=== PATIENT | female | born 1980 | race Hispanic/Latino ===

== ENCOUNTER 2020-05-15 15:06 | Emergency (ER) | payer SELFPAY ==
[~2020-05-15] VITALS: Ht 165.1 cm; Wt 76.7 kg
[2020-05-15] MEDS ORDERED: KETOROLAC TROMETHAMINE 30 MG/ML VIAL IV STA (15:32)
[2020-05-15] MEDS ORDERED: ONDANSETRON HCL INJ 2MG/ML 2ML 2 MG/ML VIAL IV STA (15:32)
[2020-05-15] MEDS ORDERED: KETOROLAC TROMETHAMINE 30 MG/ML VIAL ONE (15:59)
[2020-05-15] MEDS ORDERED: ONDANSETRON HCL INJ 2MG/ML 2ML 2 MG/ML VIAL ONE (15:59)
--- NOTE | 2020-05-15 16:21 | Diagnostic Imaging Report ---
EXAM: CT Abdomen and Pelvis WITHOUT intravenous contrast INDICATION: Right upper quadrant abdominal pain COMPARISON: None. TECHNIQUE: Abdomen and pelvis were scanned utilizing a multidetector helical scanner from the lung base to the pubic symphysis without administration of IV contrast. Coronal and sagittal reformations were obtained. IV CONTRAST: None ORAL CONTRAST: None COMPLICATIONS: None RADIATION DOSE: Total DLP: (DLP x 0.015 x size factor) mGy*cm Dose modulation, iterative reconstruction, and/or weight based adjustment of the mA/kV was utilized to reduce the radiation dose to as low as reasonably achievable. FINDINGS: LOWER THORAX: Normal. HEPATOBILIARY: No focal liver lesion. Status post cholecystectomy. SPLEEN: No splenomegaly. PANCREAS: No focal masses or ductal dilatation. ADRENALS: No adrenal nodules. KIDNEYS/URETERS: Left upper pole renal calculi measure up to 5 mm. Left lower pole renal calculi measure up to 3 mm. No hydronephrosis or hydroureter. No right renal calculi. No solid renal mass lesion. PELVIC ORGANS/BLADDER: 4.9 x 4.1 x 5.8 cm right pelvic fat containing lesion containing several punctate areas of calcification, possibly an ovarian dermoid. PERITONEUM / RETROPERITONEUM: No free air or fluid. LYMPH NODES: No lymphadenopathy. VESSELS: Unremarkable. GI TRACT: No abnormal bowel thickening. No bowel obstruction. Postoperative findings of appendectomy. BONES AND SOFT TISSUES: No acute osseous injury. No suspicious lytic or blastic lesions. IMPRESSION: No focal abnormality in the right upper quadrant. Status post cholecystectomy. 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 Recommend follow-up with pelvic ultrasound in 12 months to assess for stability. Signed by: David Miller MD on 05/15/2020 4:17 PM
--- OUTSIDE RECORDS SUMMARY | 2020-05-15 16:30 | XMS REPORT | Summary of Care ---
Author Author [facility] Organization [facility] Address Unknown Phone Unavailable Care Team Providers Care Lock Master Name Role Phone Fidel Flores PCP Encounter [facility](ANUP) [id number] Date(s): 06/22/19 - 06/24/19 [facility] [address] [place] [address]- Discharge Disposition: Home or Self Care Attending Physician: Stephanie Matson MD Admitting Physician: Stephanie Matson MD Vital Signs 1 2 3 Most recent to oldest [Reference Range]: 165.1 cm (06/24/19 8:04 AM) 165.1 cm (06/23/19 9:00 AM) 165.1 cm (06/22/19 5:11 PM) Height 98.5 DegF (06/24/19 7:40 AM) 98.2 DegF (06/24/19 3:07 AM) 97.9 DegF (06/23/19 11:17 PM) Temperature Oral [96.4-99.1 DegF] 106/66 mmHg (06/24/19 7:40 AM) 91/55 mmHg (06/24/19 3:07 AM) 115/75 mmHg (06/23/19 11:17 PM) Blood Pressure [90-140/60-90 mmHg] 16 BRMIN (06/24/19 7:40 AM) 16 BRMIN (06/24/19 3:07 AM) 16 BRMIN (06/23/19 11:17 PM) Respiratory Rate [14-20 BRMIN] 61 bpm (06/24/19 7:40 AM) 79 bpm (06/24/19 3:07 AM) 64 bpm (06/23/19 11:17 PM) Peripheral Pulse Rate [60-100 bpm] 71.364 kg (06/24/19 8:04 AM) 71.364 kg (06/23/19 9:00 AM) 71.364 kg (06/22/19 5:11 PM) Weight 26.18 m2 (06/24/19 8:04 AM) 26.18 m2 (06/23/19 9:00 AM) 26.18 m2 (06/22/19 5:11 PM) Body Mass Index Problem List Condition Effective Dates Status Health Status Informan t Tachycardia(Confirme Resolved d) Allergies, Adverse Reactions, Alerts No Known Medication Allergies Medications acetaminophen 650 mg, 2 tab, Route: PO, Drug form: TAB, Q4H, Dosing Weight 71.364, kg, PRN Kelton n 1-3/Temp > 100.4 F, Start date: 06/22/19 18:15:00 CDT, Duration: 30 day, Stop date: 07/22/19 18:14:00 CDT, 0 Notes: Do not exceed 4 gm/day. (Same as: Tylenol) Start Date: 06/22/19 Stop Date: 06/24/19 Status: Discontinued ANES acetaminophen 1,000 mg, Route: PO, Drug form: TAB, ONCE, Dosing Weight 71.364, kg, PRN Pain Sc ore 1-3, Start date: 06/23/19 10:54:00 CDT Start Date: 06/23/19 Stop Date: 06/23/19 Status: Discontinued ANES fentaNYL 25 microgram, Route: IVP, Q5Min, Dosing Weight 71.364, kg, PRN Pain Score 4-6, P riority: Routine, Start date: 06/23/19 10:46:00 CDT, Duration: 4 doses or times, Stop date: Limited # of times Start Date: 06/23/19 Stop Date: 06/23/19 Status: Discontinued ANES flumazenil 0.2 mg, Route: IVP, PRN, Dosing Weight 71.364, kg, PRN Benzodiazepine Reversal, Initial dose, Start date: 06/23/19 10:46:00 CDT, Duration: 30 day, Stop date: 10:45:00 CDT Start Date: 06/23/19 Stop Date: 06/23/19 Status: Discontinued ANES flumazenil 0.2 mg, Route: IVP, PRN, Dosing Weight 71.364, kg, PRN Benzodiazepine Reversal, Initial dose, Start date: 06/23/19 10:54:00 CDT, Duration: 30 day, Stop date: 10:53:00 CDT Start Date: 06/23/19 Stop Date: 06/23/19 Status: Discontinued ANES HYDROmorphone 0.5 mg, Route: IVP, Q5Min, Dosing Weight 71.364, kg, PRN Pain Score 7-10, Start date: 06/23/19 10:54:00 CDT, Duration: 4 doses or times, Stop date: Limited # of times Start Date: 06/23/19 Stop Date: 06/23/19 Status: Discontinued ANES morphine Sulfate 2 mg, Route: IVP, Q5Min, Dosing Weight 71.364, kg, PRN Pain Score 4-6, Start luke e: 06/23/19 10:54:00 CDT, Duration: 5 doses or times, Stop date: Limited # of ti mes Start Date: 06/23/19 Stop Date: 06/23/19 Status: Discontinued ANES naloxone 0.4 mg, Route: IVP, Q2MIN, Dosing Weight 71.364, kg, PRN Narcotic Reversal, Star t date: 06/23/19 10:46:00 CDT, Duration: 8 doses or times, Stop date: Limited # of times Start Date: 06/23/19 Stop Date: 06/23/19 Status: Discontinued ANES naloxone 0.4 mg, Route: IVP, Q2MIN, Dosing Weight 71.364, kg, PRN Narcotic Reversal, Star t date: 06/23/19 10:54:00 CDT, Duration: 8 doses or times, Stop date: Limited # of times Start Date: 06/23/19 Stop Date: 06/23/19 Status: Discontinued ANES ondansetron 4 mg, Route: IVP, ONCE, Dosing Weight 71.364, kg, PRN Nausea & Vomiting, Start date: 06/23/19 10:46:00 CDT Start Date: 06/23/19 Stop Date: 06/23/19 Status: Discontinued ANES ondansetron 4 mg, Route: IVP, ONCE, Dosing Weight 71.364, kg, PRN Nausea & Vomiting, Start date: 06/23/19 10:54:00 CDT Start Date: 06/23/19 Stop Date: 06/23/19 Status: Discontinued ANES oxyCODONE 5 mg immediate release tablet 10 mg, Route: PO, Drug form: TAB, Q4H, Dosing Weight 71.364, kg, PRN Pain Score 7-10, Start date: 06/23/19 10:46:00 CDT, Duration: 30 day, Stop date: 07/23/19 1 0:45:00 CDT Start Date: 06/23/19 Stop Date: 06/23/19 Status: Discontinued ANES oxyCODONE 5 mg immediate release tablet 5 mg, Route: PO, Drug form: TAB, Q4H, Dosing Weight 71.364, kg, PRN Pain Score 4 -6, Start date: 06/23/19 10:54:00 CDT, Duration: 30 day, Stop date: 07/23/19 10: 53:00 CDT Start Date: 06/23/19 Stop Date: 06/23/19 Status: Discontinued ANES oxyCODONE 5 mg immediate release tablet 10 mg, Route: PO, Drug form: TAB, Q4H, Dosing Weight 71.364, kg, PRN Pain Score 7-10, Start date: 06/23/19 10:54:00 CDT, Duration: 30 day, Stop date: 07/23/19 1 0:53:00 CDT Start Date: 06/23/19 Stop Date: 06/23/19 Status: Discontinued carvedilol 3.125 mg, 1 tab, Route: PO, Drug form: TAB, Q12H, Dosing Weight 71.364, kg, Star t date: 06/23/19 21:00:00 CDT, Duration: 30 day, Stop date: 07/23/19 9:00:00 CDT , 0 Notes: Give with food. (Same As: Coreg) Start Date: 06/23/19 Stop Date: 06/24/19 Status: Discontinued carvedilol 3.125 mg oral tablet 3.125 mg = 1 tab, PO, BID, # 180 tab, 0 Refill(s) Start Date: 06/22/19 Status: Ordered ciprofloxacin 400 mg, 200 mL, Route: IVPB, Drug form: INJ, [id number], Dosing Weight 71.364, kg, Start date: 06/22/19 19:00:00 CDT, Duration: 10 day, Stop date: 07/02/19 7:00:00 CDT, ABX Indication: Intra-abdominal Infection, 0 Notes: Do not refrigerate Start Date: 06/22/19 Stop Date: 06/24/19 Status: Discontinued Colace 100 mg oral capsule 100 mg = 1 cap, PO, BID, PRN as needed for constipation, # 20 cap, 0 Refill(s), Pharmacy: [id number] Start Date: 06/23/19 Status: Ordered dexamethasone (ANES) Route: IV, Drug form: INJ, ONCE, Stop date: 06/23/19 10:03:00 CDT Start Date: 06/23/19 Stop Date: 06/23/19 Status: Completed Dextrose 50% Syringe 12.5 gm, 25 mL, Route: IVP, Drug Form: INJ, Dosing Weight 71.364, kg, PRN, PRN B lood Glucose Results, Start date: 06/22/19 18:15:00 CDT, Duration: 30 day, Stop date: 07/22/19 18:14:00 CDT, 0 Start Date: 06/22/19 Stop Date: 06/24/19 Status: Discontinued Dextrose 50% Syringe 25 gm, 50 mL, Route: IVP, Drug Form: INJ, Dosing Weight 71.364, kg, PRN, PRN Blo od Glucose Results, Start date: 06/22/19 18:15:00 CDT, Duration: 30 day, Stop da te: 07/22/19 18:14:00 CDT, 0 Start Date: 06/22/19 Stop Date: 06/24/19 Status: Discontinued fentaNYL (ANES) Route: IV, Drug form: INJ, ONCE, Stop date: 06/23/19 9:32:00 CDT Start Date: 06/23/19 Stop Date: 06/23/19 Status: Completed Flagyl 500 mg, 100 mL, Route: IVPB, Drug form: INJ, [id number], Dosing Weight 71.364, kg, S tart date: 06/22/19 19:00:00 CDT, Duration: 10 day, Stop date: 07/02/19 11:00:00 CDT, ABX Indication: Intra-abdominal Infection, 0 Notes: (Same as: Flagyl) Avoid alcohol. Start Date: 06/22/19 Stop Date: 06/24/19 Status: Discontinued glucagon 1 mg, Route: IM, Drug form: PDR/INJ, PRN, Dosing Weight 71.364, kg, PRN Blood Gl ucose Results, Start date: 06/22/19 18:15:00 CDT, Duration: 30 day, Stop date: 1 18:14:00 CDT, 0 Start Date: 06/22/19 Stop Date: 06/24/19 Status: Discontinued glycopyrrolate (ANES) Route: IV, Drug form: INJ, ONCE, Stop date: 06/23/19 10:03:00 CDT Start Date: 06/23/19 Stop Date: 06/23/19 Status: Completed Lactated Ringers Injection IV (ANES) 1000 mL Route: IV, Total Volume: 1,000, Start date: 06/23/19 8:47:00 CDT, Stop date: 9:47:00 CDT Start Date: 06/23/19 Stop Date: 06/23/19 Status: Completed Lactated Ringers IV 1,000 mL 1,000 mL, Rate: 125 ml/hr, Infuse over: 8 hr, Route: IV, Dosing Weight 71.364 kg , Total Volume: 1,000, Start date: 06/22/19 18:23:00 CDT, Duration: 30 day, Stop date: 07/22/19 18:22:00 CDT, 1.83, m2, 0 Start Date: 06/22/19 Stop Date: 06/24/19 Status: Discontinued lidocaine (ANES) Route: IV, Drug form: INJ, ONCE, Stop date: 06/23/19 9:32:00 CDT Start Date: 06/23/19 Stop Date: 06/23/19 Status: Completed melatonin 3 mg, 1 tab, Route: PO, Drug form: TAB, Bedtime, Dosing Weight 71.364, kg, PRN I nsomnia, Start date: 06/22/19 18:15:00 CDT, Duration: 30 day, Stop date: 9 18:14:00 CDT, 0 Notes: (Same as: Melatonin) Start Date: 06/22/19 Stop Date: 06/24/19 Status: Discontinued midazolam (ANES) Route: IV, Drug form: SOLN, ONCE, Stop date: 06/23/19 9:32:00 CDT Start Date: 06/23/19 Stop Date: 06/23/19 Status: Completed morphine Sulfate 4 mg, 1 mL, Route: IVP, Drug form: SOLN, Q4H, Dosing Weight 71.364, kg, PRN Pain Score 7-10, Start date: 06/22/19 21:18:00 CDT, Duration: 30 day, Stop date: 21:17:00 CDT, 0 Notes: (Same as:MORPhine Sulfate) Start Date: 06/22/19 Stop Date: 06/24/19 Status: Discontinued neostigmine (ANES) Route: IV, Drug form: INJ, ONCE, Stop date: 06/23/19 10:03:00 CDT Start Date: 06/23/19 Stop Date: 06/23/19 Status: Completed ondansetron 4 mg, 2 mL, Route: IVP, Drug form: INJ, Q8H, Dosing Weight 71.364, kg, PRN Nause a & Vomiting, Start date: 06/22/19 18:15:00 CDT, Duration: 30 day, Stop date: 07/22/19 18:14:00 CDT, 0 Notes: (Same as: Zofran) MEDICATION WASTE Product Size: 4 mgProduct Was alessandra: ___ mg Start Date: 06/22/19 Stop Date: 06/24/19 Status: Discontinued ondansetron (ANES) Route: IV, Drug form: INJ, ONCE, Stop date: 06/23/19 10:03:00 CDT Start Date: 06/23/19 Stop Date: 06/23/19 Status: Completed propofol (ANES) Route: IV, Drug form: INJ, ONCE, Stop date: 06/23/19 9:32:00 CDT Start Date: 06/23/19 Stop Date: 06/23/19 Status: Completed rocuronium (ANES) Route: IV, Drug form: INJ, ONCE, Stop date: 06/23/19 9:32:00 CDT Start Date: 06/23/19 Stop Date: 06/23/19 Status: Completed sodium phosphate + Dextrose 5% in Water IV 250 mL 30 mmol, 10 mL, Route: IVPB, PRN, Dosing Weight 71.364, kg, PRN Abnormal Lab Res ult, Start date: 06/22/19 21:02:00 CDT, Duration: 30 day, Stop date: 07/22/19 21 :01:00 CDT, Phosphate level 1.5 - 1.9 mg/dL, 0 Notes: Infuse over 4 hour. Do not infuse phosphorous concurrently in the same li ne as TPN or IVF that contains calcium. For double lumen central lines, phosphor ous may be infused in a separate lumen from TPN. Start Date: 06/22/19 Stop Date: 06/24/19 Status: Discontinued tramadol 50 mg oral tablet 50 mg = 1 tab, PO, Q4H, PRN Pain Score 7-10, # 28 tab, 0 Refill(s) Start Date: 06/23/19 Stop Date: 07/23/19 Status: Ordered Results 1 2 3 Most recent to oldest [Reference Range]: 6.4 K/CMM (06/24/19 3:12 AM) 6.6 K/CMM (06/23/19 6:01 AM) 9.2 K/CMM *HI* (06/22/19 6:43 PM) Neutrophils # [1.5-8.1 K/CMM] 2.0 K/CMM (06/24/19 3:12 AM) 0.9 K/CMM *LOW* (06/23/19 6:01 AM) 1.0 K/CMM (06/22/19 6:43 PM) Lymphocytes # [1.0-5.5 K/CMM] 0.6 K/CMM (06/24/19 3:12 AM) 0.3 K/CMM (06/23/19 6:01 AM) 0.2 K/CMM (06/22/19 6:43 PM) Monocytes # [0.0-0.8 K/CMM] 0.1 K/CMM (06/22/19 6:43 PM) Eosinophils # [0.0-0.5 K/CMM] 122 mL/min/1.73m2 1 *NA* (06/24/19 3:12 AM) 129 mL/min/1.73m2 2 *NA* (06/23/19 6:01 AM) 120 mL/min/1.73m2 3 *NA* (06/22/19 6:43 PM) eGFR 10.0 mEq/L (06/24/19 3:12 AM) 9.9 mEq/L *LOW* (06/23/19 6:01 AM) 8.9 mEq/L *LOW* (06/22/19 6:43 PM) AGAP [10.0-20.0 mEq/L] 0.1 % (06/24/19 3:12 AM) 0.1 % (06/22/19 6:43 PM) Basophils [0.0-1.0 %] 9 mg/dL (06/24/19 3:12 AM) 7 mg/dL (06/23/19 6:01 AM) 8 mg/dL (06/22/19 6:43 PM) BUN [7-22 mg/dL] 8.6 mg/dL (06/24/19 3:12 AM) 8.7 mg/dL (06/23/19 6:01 AM) 9.2 mg/dL (06/22/19 6:43 PM) Calcium Lvl [8.5-10.5 mg/dL] 109 mEq/L (06/24/19 3:12 AM) 111 mEq/L *HI* (06/23/19 6:01 AM) 111 mEq/L *HI* (06/22/19 6:43 PM) Chloride Lvl [95-109 mEq/L] 26 mEq/L (06/24/19 3:12 AM) 23 mEq/L *LOW* (06/23/19 6:01 AM) 24 mEq/L (06/22/19 6:43 PM) CO2 [24-32 mEq/L] 0.52 mg/dL (06/24/19 3:12 AM) 0.44 mg/dL *LOW* (06/23/19 6:01 AM) 0.55 mg/dL (06/22/19 6:43 PM) Creatinine Lvl [0.50-1.40 mg/dL] 0.2 % (06/24/19 3:12 AM) 0.6 % (06/22/19 6:43 PM) Eosinophils [0.0-4.0 %] 92 mg/dL (06/24/19 3:12 AM) 115 mg/dL *HI* (06/23/19 6:01 AM) 106 mg/dL *HI* (06/22/19 6:43 PM) Glucose Lvl [70-99 mg/dL] 25.4 % *LOW* (06/24/19 3:12 AM) 27.4 % *LOW* (06/23/19 6:01 AM) 30.9 % *LOW* (06/22/19 6:43 PM) Hct [36.0-48.0 %] 8.0 g/dL *LOW* (06/24/19 3:12 AM) 8.6 g/dL *LOW* (06/23/19 6:01 AM) 10.0 g/dL *LOW* (06/22/19 6:43 PM) Hgb [12.0-16.0 g/dL] 4.0 mEq/L (06/24/19 3:12 AM) 3.9 mEq/L (06/23/19 6:01 AM) 3.9 mEq/L (06/22/19 6:43 PM) Potassium Lvl [3.5-5.1 mEq/L] 22.4 % (06/24/19 3:12 AM) 12.0 % *LOW* (06/23/19 6:01 AM) 9.6 % *LOW* (06/22/19 6:43 PM) Lymphocytes [20.0-40.0 %] 22.9 pg *LOW* (06/24/19 3:12 AM) 22.8 pg *LOW* (06/23/19 6:01 AM) 23.1 pg *LOW* (06/22/19 6:43 PM) MCH [27.0-31.0 pg] 31.7 g/dL *LOW* (06/24/19 3:12 AM) 31.5 g/dL *LOW* (06/23/19 6:01 AM) 32.5 g/dL (06/22/19 6:43 PM) MCHC [32.0-36.0 g/dL] 72.2 fL *LOW* (06/24/19 3:12 AM) 72.2 fL *LOW* (06/23/19 6:01 AM) 71.0 fL *LOW* (06/22/19 6:43 PM) MCV [80.0-98.0 fL] 1.9 mg/dL (06/24/19 3:12 AM) 1.9 mg/dL (06/23/19 6:01 AM) 2.2 mg/dL (06/22/19 6:43 PM) Magnesium Lvl [1.8-2.4 mg/dL] 1+ *ABN* (06/24/19 3:12 AM) 1+ *ABN* (06/23/19 6:01 AM) 1+ *ABN* (06/22/19 6:43 PM) Microcyte [None Seen] 6.9 % (06/24/19 3:12 AM) 4.0 % (06/23/19 6:01 AM) 1.9 % *LOW* (06/22/19 6:43 PM) Monocytes [2.0-12.0 %] 7.0 fL *LOW* (06/24/19 3:12 AM) 6.7 fL *LOW* (06/23/19 6:01 AM) 6.9 fL *LOW* (06/22/19 6:43 PM) MPV [7.4-10.4 fL] 141 mEq/L (06/24/19 3:12 AM) 140 mEq/L (06/23/19 6:01 AM) 140 mEq/L (06/22/19 6:43 PM) Sodium Lvl [135-145 mEq/L] 2.5 mg/dL (06/24/19 3:12 AM) 3.4 mg/dL (06/23/19 6:01 AM) 1.7 mg/dL *LOW* (06/22/19 6:43 PM) Phosphorus [2.5-4.5 mg/dL] 284 K/CMM (06/24/19 3:12 AM) 325 K/CMM (06/23/19 6:01 AM) 359 K/CMM (06/22/19 6:43 PM) Platelet [133-450 K/CMM] 70.4 % (06/24/19 3:12 AM) 84.0 % *HI* (06/23/19 6:01 AM) 87.8 % *HI* (06/22/19 6:43 PM) Segs [45.0-75.0 %] 3.51 M/CMM *LOW* (06/24/19 3:12 AM) 3.79 M/CMM *LOW* (06/23/19 6:01 AM) 4.35 M/CMM (06/22/19 6:43 PM) RBC [4.20-5.40 M/CMM] 18.2 % *HI* (06/24/19 3:12 AM) 18.1 % *HI* (06/23/19 6:01 AM) 17.8 % *HI* (06/22/19 6:43 PM) RDW [11.5-14.5 %] <0.02 ng/mL (06/23/19 6:01 AM) <0.02 ng/mL (06/23/19 12:06 AM) <0.02 ng/mL (06/22/19 6:43 PM) Troponin-I [0.00-0.40 ng/mL] Negative (06/23/19 8:01 AM) U Preg [Negative] 9.1 K/CMM (06/24/19 3:12 AM) 7.9 K/CMM (06/23/19 6:01 AM) 10.5 K/CMM *HI* (06/22/19 6:43 PM) WBC [3.7-10.4 K/CMM] 1Result Comment: The eGFR is calculated using the CKD-EPI formula. In most young, healthy individuals the eGFR will be >90 mL/min/1.73m2. The eGFR declines with age. An eGFR of 60-89 may be normal in some populations, particularly the elderly, for whom the CKD-EPI formula has not been extensively validated. Use of the eGFR is not recommended in the following populations: Individuals with unstable creatinine concentrations, including patients and those with serious co-morbid conditions. Patients with extremes in muscle mass or diet. The data above are obtained from the National Kidney Disease Education Program ( NKDEP) which additionally recommends that when the eGFR is used in patients with extremes of body mass index for purposes of drug dosing, the eGFR should be mul tiplied by the estimated BMI. 2Result Comment: The eGFR is calculated using the CKD-EPI formula. In most young, healthy individuals the eGFR will be >90 mL/min/1.73m2. The eGFR declines with age. An eGFR of 60-89 may be normal in some populations, particularly the elderly, for whom the CKD-EPI formula has not been extensively validated. Use of the eGFR is not recommended in the following populations: Individuals with unstable creatinine concentrations, including patients and those with serious co-morbid conditions. Patients with extremes in muscle mass or diet. The data above are obtained from the National Kidney Disease Education Program ( NKDEP) which additionally recommends that when the eGFR is used in patients with extremes of body mass index for purposes of drug dosing, the eGFR should be mul tiplied by the estimated BMI. 3Result Comment: The eGFR is calculated using the CKD-EPI formula. In most young, healthy individuals the eGFR will be >90 mL/min/1.73m2. The eGFR declines with age. An eGFR of 60-89 may be normal in some populations, particularly the elderly, for whom the CKD-EPI formula has not been extensively validated. Use of the eGFR is not recommended in the following populations: Individuals with unstable creatinine concentrations, including patients and those with serious co-morbid conditions. Patients with extremes in muscle mass or diet. The data above are obtained from the National Kidney Disease Education Program ( NKDEP) which additionally recommends that when the eGFR is used in patients with extremes of body mass index for purposes of drug dosing, the eGFR should be mul tiplied by the estimated BMI. Immunizations No data available for this section Procedures No data available for this section Social History Social History Type Response Alcohol Never, Previous treatment: None. Alcohol use interferes with work or home: No. Drinks more than intended: No. Ot hers hurt by drinking: No. Ready to change: No. Household alcohol concerns : No. Smoking Status Never smoker; Ready to [place]: No; Concerns about tobacco use in household: No; Exposure to Tobacco Smoke None; Cig arette Smoking Last 365 Days No; Reg Smoking Cessation Counseling No entered on: 06/22/19 Assessment and Plan Extracted from: Title: Progress Note Complex * Author: Stephanie Matson MD Date: 06/23/19 Impression and Plan 38 YO F with no prior hx admitted with a bd pain and found to have acute appendicitis. Acute appendicitis - s/p lap appendectomy 06/23/19 -cnt supportive mgmt -dispo plan per surgery after clearance Leukocytosis - resolved and sec to appendicitis - -monitor Anemia - likely dilutional and possible Fe def anemia considering microcytic anemia '- needs outpt fu with PCP Dispo - home pending surgery clearance. Extracted from: Title: General Surgery Author: Long Ivory MD Date: 06/22/19 Impression and Plan 1) mild acute appendicitis 2) history of tachycardia 3) gastritis --Patient has been admitted to the [facility] service. --Regarding the acute appendicitis, she will be started on IV antibiotics, pain control, --Plan on appendectomy early tomorrow. We will give a clear liquid tonight and n.p.o. after midnight. --I did discuss operative versus nonoper ative management options with the patient. Risk, benefits and possible complications of appendectomy were also discussed. She wants to proceed with surgical intervention. --Regarding the tachycardia, I will defe r to the primary team. She is being started on her home medication. --Recommended to patient and her that patient is to follow with her primary fiber technologist for possibly repeat EGD since she continues with persistent epigastric pain post cholecystectomy about a year ago. Thank you for this consult. We will continue to follow the patient with you. Extracted from: Title: History and Physical Author: Eugenia Chavez MD Date: 06/22/19 Appendicitis, acute(K35.80) Ordered: Admit/Condition, 06/22/19 18:16:00 CDT, Status: Out Patient with Observation Services, Acute, Expected LOS: 2 Midnights, Eugenia Chavez MD, Admit MD Review/Approve Yes, Isolation: No Isolation/Standard Precautions, Appendicitis, acute
--- OUTSIDE RECORDS SUMMARY | 2020-05-15 16:30 | XMS REPORT | CCD ---
Author Author Auto Generated, [facility] Address Unknown Phone Unavailable Care Team Providers Care Fitness Plan Coordinator Name Role Phone Sanjay Perez CP Allergies, Adverse Reactions, Alerts Substance Reaction Status NKDA Active Vital Signs Most recent to oldest [Reference Range]: 1 Height 165.1 cm (03/09/2013 20:00:00) Weight 83.636 kg (03/09/2013 20:00:00) Results URINALYSIS Most recent to oldest [Reference Range]: 1 UA Turbidity [Clear] Clear (03/09/2013 20:02:00) UA Color Ltyellow *NA* (03/09/2013 20:02:00) UA pH [5.0-8.0] 5.0 (03/09/2013 20:02:00) UA Spec Grav [<=1.030] 1.019 (03/09/2013 20:02:00) UA Glucose [Negative mg/dL] Negative mg/dL *NA* (03/09/2013 20:02:00) UA Blood [Negative] Negative (03/09/2013 20:02:00) UA Ketones [Negative mg/dL] Negative mg/dL *NA* (03/09/2013 20:02:00) UA Protein [Negative mg/dL] Negative mg/dL (03/09/2013 20:02:00) UA Urobilinogen [0.1-1.0 mg/dL] <=1.0 mg/dL *NA* (03/09/2013 20:02:00) UA Bili [Negative] Negative *NA* (03/09/2013 20:02:00) UA Leuk Est [Negative] Negative (03/09/2013 20:02:00) UA Nitrite [Negative] Negative (03/09/2013 20:02:00) UA WBC [0-5 /HPF] 1 /HPF (03/09/2013 20:02:00) UA Sq Epi [Few /LPF] Occasional /LPF *NA* (03/09/2013:02:00) CHEMISTRY Most recent to oldest [Reference Range]: 1 Sodium Lvl [135-145 mEq/L] 142 mEq/L (03/09/2013 20:24:00) Potassium Lvl [3.5-5.1 mEq/L] 4.2 mEq/L (03/09/2013:24:00) Chloride Lvl [95-109 mEq/L] 106 mEq/L (03/09/2013:24:00) CO2 [24-32 mEq/L] 28 mEq/L (03/09/2013:24:00) AGAP [10.0-20.0 mEq/L] 12.2 mEq/L (03/09/2013:24:00) Creatinine Lvl [0.5-1.4 mg/dL] 0.8 mg/dL (03/09/2013:24:00) eGFR 98 mL/min/1.73m2 1 *NA* (03/09/2013:24:00) BUN [7-22 mg/dL] 11 mg/dL (03/09/2013:24:00) B/C Ratio [6-25] 14 (03/09/2013:24:00) Glucose Lvl [70-99 mg/dL] 80 mg/dL 2 (03/09/2013 20:24:00) Total Protein [6.4-8.4 g/dL] 8.1 g/dL (03/09/2013:24:00) Albumin Lvl [3.5-5.0 g/dL] 4.0 g/dL (03/09/2013:24:00) Globulin [2.0-4.0 g/dL] 4.1 g/dL *HI* (03/09/2013:24:00) A/G Ratio [0.7-1.6] 1.0 (03/09/2013:24:00) Calcium Lvl [8.5-10.5 mg/dL] 9.0 mg/dL (03/09/2013:24:00) ALT [0-65 unit/L] 33 unit/L (03/09/2013::00) AST [0-37 unit/L] 17 unit/L (03/09/2013:) Alk Phos [39-136 unit/L] 83 unit/L (03/09/2013:00) Bili Total [0.2-1.3 mg/dL] 0.3 mg/dL (03/09/2013::00) Amylase Lvl [25-115 unit/L] 41 unit/L (03/09/2013:00) Lipase Lvl [73-393 unit/L] 130 unit/L (03/09/2013::00) U Preg [Negative] Negative (03/09/2013:00) 1Result Comment: The eGFR is calculated using [...] be mul tiplied by the estimated BMI. 2Interpretive Data: Adult reference range values reflect the clinical guidelines of the [place] [employer]. HEMATOLOGY Most recent to oldest [Reference Range]: 1 WBC [3.7-10.4 K/CMM] 9.2 K/CMM (03/09/2013::) RBC [4.20-5.40 M/CMM] 4.65 M/CMM (03/09/2013:) Hgb [12.0-16.0 g/dL] 13.1 g/dL (03/09/2013:00) Hct [36.0-48.0 %] 39.5 % (03/09/2013 20:24:00) MCV [81.0-99.0 fL] 85.1 fL (03/09/2013:24:00) MCH [27.0-31.0 pg] 28.1 pg (03/09/2013:24:00) MCHC [32.0-36.0 g/dL] 33.1 g/dL (03/09/2013:24:00) RDW [11.5-14.5 %] 14.6 % *HI* (03/09/2013:24:00) Platelet [133-450 K/CMM] 400 K/CMM (03/09/2013:24:00) MPV [7.4-10.4 fL] 7.2 fL *LOW* (03/09/2013:24:) Segs [45.0-75.0 %] 49.3 % (03/09/2013:24:00) Lymphocytes [20.0-40.0 %] 39.2 % (03/09/2013:24:00) Monocytes [2.0-12.0 %] 5.9 % (03/09/2013:24:00) Eosinophils [0.0-4.0 %] 5.3 % *HI* (03/09/2013:24:) Basophils [0.0-1.0 %] 0.3 % (03/09/2013:24:00) Segs-Bands # [1.5-8.1 K/CMM] 4.5 K/CMM (03/09/2013:24:00) Lymphocytes # [1.0-5.5 K/CMM] 3.6 K/CMM (03/09/2013:24:00) Monocytes # [0.0-0.8 K/CMM] 0.5 K/CMM (03/09/2013 20:24:00) Eosinophils # [0.0-0.5 K/CMM] 0.5 K/CMM (03/09/2013:24:00) Basophils # [0.0-0.2 K/CMM] 0.0 K/CMM (03/09/2013 20:24:00)
--- OUTSIDE RECORDS SUMMARY | 2020-05-15 16:30 | XMS REPORT | Clinical Summary ---
Author Author [facility] Address Unknown Phone Unavailable Care Team Providers Care Blood Splatter Analyst Name Role Phone PCP Unavailable Allergies No Known Allergies Medications End Date Status Medication Sig Dispensed Refills Start Date Active carvedilol (COREG) 3.125 Take 3.125 mg 0 MG tablet by mouth 2 (two) times daily with breakfast and dinner. Active dexlansoprazole Take 30 mg by 0 (KAPIDEX,DEXILANT) 30 mg mouth daily. delayed release capsule Active traMADol (ULTRAM) 50 mg Take 1 tablet 10 tablet 0 tablet (50 mg total) 8 by mouth every 6 (six) hours as needed. Max Daily Amount: 200 mg Active Problems Problem Noted Date Calculus of gallbladder with biliary obstruction but without cholecystitis 09/04/2018 Acute hepatitis 09/04/2018 Family History Medical History Relation Name Comments Diabetes Father Heart disease Father Relation Name Status Comments Father Social History Date Tobacco Use Types Packs/Day Years Used Never Smoker Smokeless Tobacco: Never Used Alcohol Use Drinks/Week oz/Week Comments Yes rare beer Alcohol Habits Answer Date Recorded How often do you have a drink containing alcohol? Never 09/04/2018 How many drinks containing alcohol do you have on No t asked a typical day when you are drinking? How often do you have six or more drinks on one Not asked occasion? Sex Assigned at Date Recorded Not on file Industry Job Start Date Occupation Not on file Not on file Not on file Travel End Travel History Travel Start No recent travel history available. Last Filed Vital Signs Not on file Plan of Treatment Not on file Results Not on fileafter 05/15/2019 Insurance Payer Benefit Subscriber ID Type Phone Address Plan / Group [employer] [facility] [employer] [place] [employer] xxxxxxxxx HMO/PO S CARE POS SELECT CHOICE Advance Directives For more information, please contact: [address] [place] [address] Date Inactivated Comments Code Status Date Activated Full Code 09/04/2018 2:54 PM This code status was determined by: Patient
--- OUTSIDE RECORDS SUMMARY | 2020-05-15 16:30 | XMS REPORT | Summary of Care ---
Author Author [facility] Organization [facility] Address Unknown Phone Unavailable Encounter [facility](FIN) [id number] Date(s): 11/08/17 - 11/09/17 [facility] [address] [place] [address]- Encounter Diagnosis Heart palpitations (Discharge Diagnosis) - 11/09/17 Palpitations (Final) - 11/15/17 Essential (primary) hypertension (Final) - Type 2 diabetes mellitus without complications (Final) - Unspecified asthma, uncomplicated (Final) - Discharge Disposition: Home or Self Care Attending Physician: Femi De Leon MD Vital Signs 1 2 3 Most recent to oldest [Reference Range]: 165.1 cm (11/08/17 7:13 PM) Height 97.8 DegF (11/09/17 1:18 AM) 97.6 DegF (11/08/17 11:59 PM) 98.4 DegF (11/08/17 7:13 PM) Temperature Oral [96.4-99.1 DegF] 127/79 mmHg (11/09/17 1:10 AM) 139/86 mmHg (11/08/17 11:59 PM) Blood Pressure [90-140/60-90 mmHg] 129 mmHg (11/09/17 1:18 AM) Systolic Blood Pressure [90-140 mmHg] 77 mmHg (11/09/17 1:18 AM) Diastolic Blood Pressure [60-90 mmHg] 17 BRMIN (11/09/17 1:18 AM) 16 BRMIN (11/09/17 1:10 AM) 17 BRMIN (11/08/17 11:59 PM) Respiratory Rate [14-20 BRMIN] 141 bpm *HI* (11/08/17 7:13 PM) Peripheral Pulse Rate [60-100 bpm] 81.818 kg (11/08/17 7:13 PM) Weight 30.02 m2 (11/08/17 7:13 PM) Body Mass Index Problem List Condition Effective Dates Status Health Status Informan t Tachycardia(Confirme Resolved d) Allergies, Adverse Reactions, Alerts Substance Reaction Severity Status NKDA NKDA Active Medications fentaNYL 50 microgram, Route: IVP, ONCE, Dosing Weight 81.818, kg, Priority: STAT, Start date: 11/08/17 22:01:00 CAR WASH SUPERVISOR, Stop date: 11/08/17 22:01:00 CAR WASH SUPERVISOR Start Date: 11/08/17 Stop Date: 11/08/17 Status: Discontinued fentaNYL 50 microgram, Route: IVP, ONCE, Dosing Weight 81.818, kg, Priority: STAT, Start date: 11/08/17 22:01:00 CAR WASH SUPERVISOR, Stop date: 11/08/17 22:01:00 CAR WASH SUPERVISOR Start Date: 11/08/17 Stop Date: 11/08/17 Status: Discontinued [place] 10/325 oral tablet 1 tab, Route: PO, Drug Form: TAB, Dosing Weight 81.818, kg, ONCE, STAT, Start da te: 11/08/17 22:01:00 CAR WASH SUPERVISOR, Stop date: 11/08/17 22:01:00 CAR WASH SUPERVISOR Start Date: 11/08/17 Stop Date: 11/08/17 Status: Discontinued Saline Flush 0.9% 10 mL, Route: IVP, Drug Form: INJ, Dosing Weight 83.182, kg, PRN, PRN Line Flush , Start date: 11/08/17 19:14:00 CAR WASH SUPERVISOR, Duration: 30 day, Stop date: 12/08/17 19:13 :00 CAR WASH SUPERVISOR Notes: (Same as: BD Posiflush) Start Date: 11/08/17 Stop Date: 11/09/17 Status: Discontinued Sodium Chloride 0.9% (Bolus) IV 1,000 mL, Infuse Over: 1 hr, Route: IV, ONCE, Priority: STAT, Dosing Weight 81.8 18 kg, Start date: 11/08/17 22:59:00 CAR WASH SUPERVISOR, Stop date: 11/08/17 22:59:00 CAR WASH SUPERVISOR Start Date: 11/08/17 Stop Date: 11/08/17 Status: Completed Zofran 4 mg, Route: IVP, Drug form: INJ, ONCE, Dosing Weight 81.818, kg, Priority: STAT , Start date: 11/08/17 22:01:00 CAR WASH SUPERVISOR, Stop date: 11/08/17 22:01:00 CAR WASH SUPERVISOR Start Date: 11/08/17 Stop Date: 11/08/17 Status: Discontinued Results ELECTROLYTES Most recent to 1 oldest [Reference Range]: Sodium Lvl [135-145 136 mEq/L mEq/L] (11/08/17 7:23 PM) Potassium Lvl 3.2 mEq/L [3.5-5.1 mEq/L] *LOW* (11/08/17 7:23 PM) Chloride Lvl [95-109 103 mEq/L mEq/L] (11/08/17 7:23 PM) CO2 [24-32 mEq/L] 21 mEq/L *LOW* (11/08/17 7:23 PM) AGAP [10.0-20.0 15.2 mEq/L mEq/L] (11/08/17 7:23 PM) CHEM PANEL Most recent to 1 oldest [Reference Range]: Creatinine Lvl 0.66 mg/dL [0.50-1.40 mg/dL] (11/08/17 7:23 PM) eGFR 114 mL/min/1.73m2 1 *NA* (11/08/17 7:23 PM) BUN [7-22 mg/dL] 12 mg/dL (11/08/17 7:23 PM) B/C Ratio [6-25] 18 (11/08/17 7:23 PM) Glucose Lvl [70-99 109 mg/dL mg/dL] *HI* (11/08/17 7:23 PM) Total Protein 8.2 g/dL [6.4-8.4 g/dL] (11/08/17 7:23 PM) Albumin Lvl [3.5-5.0 3.9 g/dL g/dL] (11/08/17 7:23 PM) Globulin [2.7-4.2 4.3 g/dL g/dL] *HI* (11/08/17 7:23 PM) A/G Ratio [0.7-1.6] 0.9 (11/08/17 7:23 PM) Calcium Lvl 9.4 mg/dL [8.5-10.5 mg/dL] (11/08/17 7:23 PM) ALT [0-65 unit/L] 28 unit/L (11/08/17 7:23 PM) AST [0-37 unit/L] 15 unit/L (11/08/17 7:23 PM) Alk Phos [39-136 98 unit/L unit/L] (11/08/17 7:23 PM) Bili Total [0.2-1.3 0.3 mg/dL mg/dL] (11/08/17 7:23 PM) 1Result Comment: The eGFR is calculated using [...] be mul tiplied by the estimated BMI. CARDIAC ENZYMES Most recent to 1 oldest [Reference Range]: Total CK [12-191 106 unit/L unit/L] (11/08/17 7:23 PM) CK MB [0.5-3.6 1.2 ng/mL ng/mL] (11/08/17 7:23 PM) CK MB Index 1.1 [0.0-2.5] (11/08/17 7:23 PM) Troponin-I <0.02 ng/mL [0.00-0.40 ng/mL] (11/08/17 7:23 PM) ENDOCRINOLOGY Most recent to 1 oldest [Reference Range]: S Preg [Negative] Negative *NA* (11/08/17 7:23 PM) URINE AND STOOL Most recent to 1 oldest [Reference Range]: UA Turbidity [Clear] Clear (11/08/17 7:50 PM) UA Color Ltyellow *NA* (11/08/17 7:50 PM) UA pH [5.0-8.0] 6.0 (11/08/17 7:50 PM) UA Spec Grav 1.018 [<=1.030] (11/08/17 7:50 PM) UA Glucose [Negative Negative mg/dL mg/dL] *NA* (11/08/17 7:50 PM) UA Blood [Negative] Negative (11/08/17 7:50 PM) UA Ketones [Negative Negative mg/dL mg/dL] *NA* (11/08/17 7:50 PM) UA Protein [Negative Negative mg/dL mg/dL] (11/08/17 7:50 PM) UA Urobilinogen <=1.0 mg/dL [0.1-1.0 mg/dL] *NA* (11/08/17 7:50 PM) UA Bili [Negative] Negative *NA* (11/08/17 7:50 PM) UA Leuk Est Trace [Negative] *ABN* (11/08/17 7:50 PM) UA Nitrite Negative [Negative] (11/08/17 7:50 PM) UA WBC [0-5 /HPF] 2 /HPF (11/08/17 7:50 PM) UA RBC [0-2 /HPF] 1 /HPF (11/08/17 7:50 PM) UA Sq Epi [Few /LPF] Occasional /LPF *NA* (11/08/17 7:50 PM) HEMATOLOGY Most recent to 1 oldest [Reference Range]: WBC [3.7-10.4 K/CMM] 11.2 K/CMM *HI* (11/08/17 7:23 PM) RBC [4.20-5.40 4.69 M/CMM M/CMM] (11/08/17 7:23 PM) Hgb [12.0-16.0 g/dL] 13.2 g/dL (11/08/17 7:23 PM) Hct [36.0-48.0 %] 39.5 % (11/08/17 7:23 PM) MCV [80.0-98.0 fL] 84.3 fL (11/08/17 7:23 PM) MCH [27.0-31.0 pg] 28.2 pg (11/08/17 7:23 PM) MCHC [32.0-36.0 33.5 g/dL g/dL] (11/08/17 7:23 PM) RDW [11.5-14.5 %] 14.9 % *HI* (11/08/17 7:23 PM) MPV [7.4-10.4 fL] 7.5 fL (11/08/17 7:23 PM) Platelet [133-450 364 K/CMM K/CMM] (11/08/17 7:23 PM) Segs [45.0-75.0 %] 43.0 % *LOW* (11/08/17 7:23 PM) Lymphocytes 46.8 % [20.0-40.0 %] *HI* (11/08/17 7:23 PM) Monocytes [2.0-12.0 4.5 % %] (11/08/17 7:23 PM) Eosinophils [0.0-4.0 5.1 % %] *HI* (11/08/17 7:23 PM) Basophils [0.0-1.0 0.6 % %] (11/08/17 7:23 PM) Segs-Bands # 4.8 K/CMM [1.5-8.1 K/CMM] (11/08/17 7:23 PM) Lymphocytes # 5.2 K/CMM [1.0-5.5 K/CMM] (11/08/17 7:23 PM) Monocytes # [0.0-0.8 0.5 K/CMM K/CMM] (11/08/17 7:23 PM) Eosinophils # 0.6 K/CMM [0.0-0.5 K/CMM] *HI* (11/08/17 7:23 PM) Basophils # [0.0-0.2 0.1 K/CMM K/CMM] (11/08/17 7:23 PM) Immunizations No data available for this section Procedures No data available for this section Social History Social History Type Response Smoking Status Never smoker; Exposure to T obacco Smoke None; Cigarette Smoking Last 365 Days No; Reg Smoking Cessation Counseli ng No entered on: 11/08/17 Assessment and Plan No data available for this section
--- OUTSIDE RECORDS SUMMARY | 2020-05-15 16:30 | XMS REPORT | Continuity of Care Document ---
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 ventricular heart strain. No atherosclerotic calcifications of coronary artery. No pericardial effusion. LUNG PARENCHYMA: No pulmonary parenchymal infarctions. No focal infiltrate. No lung mass. PLEURA: No effusion. No pneumothorax. MEDIASTINUM AND SURROUNDING SOFT TISSUES: No pathologically enlarged lymph nodes in axillary, supraclavicular, mediastinal, hilar, or retrocrural spaces. Thyroid gland appears within normal limits. UPPER ABDOMEN: No acute pathology identified in the upper abdomen. Bilateral nonobstructing MUSCULOSKELETAL: No acute fracture or dislocation. No lytic or blastic lesion. IMPRESSION: 1. No evidence of pulmonary embolism. Roblero bsegmental branch evaluation in the right lung is suboptimal secondary to respiratory motion. 2. No acute intrathoric finding. 3. Bilateral nonobstructing nephrolithia sis. SL: [id number] 11/08/2017 [facility] Chest 1view DX Clinical Indica tion: - palpitations Comparison: None FINDINGS: AP chest radiograph was obtained. MEDIASTINUM: The cardiac silhouette is normal in size. The aorta is unremarkable. LUNGS: Lung volumes are maintained. There are no focal infiltrates or effusions. There are no pneumothoraces noted. BONES: The visualized osseous structures are unremarkable. IMPRESSION: No acute infiltrates or effusions. SL: [id number] 11/08/2017 [facility] Consultation Notes No Data Provided for This Section Discharge Summaries No Data Provided for This Section History and Physicals No Data Provided for This Section Vital Signs Vital Sign Value Date Comments Source Height 165.1 cm 06/24/2019 [facility] BMI Calculated 26.18 06/24/2019 [facility] Weight 71.364 06/24/2019 [facility] Temperature Oral (F) 98.5 F 06/24/2019 [facility] Heart Rate 61 06/24/2019 [facility] Respitory Rate 16 06/24/2019 [facility] Systolic (mm Hg) 106 06/24/2019 [facility] Diastolic (mm Hg) 66 06/24/2019 [facility] Temperature Oral (F) 98.2 F 06/24/2019 [facility] Heart Rate 79 06/24/2019 [facility] Respitory Rate 16 06/24/2019 [facility] Systolic (mm Hg) 91 06/24/2019 [facility] Diastolic (mm Hg) 55 06/24/2019 [facility] Temperature Oral (F) 97.9 F 06/24/2019 [facility] Heart Rate 64 06/24/2019 [facility] Respitory Rate 16 06/24/2019 [facility] Systolic (mm Hg) 115 06/24/2019 [facility] Diastolic (mm Hg) 75 06/24/2019 [facility] Height 165.1 cm 06/23/2019 [facility] BMI Calculated 26.18 06/23/2019 [facility] Weight 71.364 06/23/2019 [facility] Height 165.1 cm 06/22/2019 [facility] Weight 71.364 06/22/2019 [facility] BMI Calculated 26.18 06/22/2019 [facility] Systolic (mm Hg) 129 11/09/2017 [facility] Respitory Rate 17 11/09/2017 [facility] Temperature Oral (F) 97.8 F 11/09/2017 [facility] Diastolic (mm Hg) 77 11/09/2017 [facility] Respitory Rate 16 11/09/2017 [facility] Systolic (mm Hg) 127 11/09/2017 [facility] Diastolic (mm Hg) 79 11/09/2017 [facility] Respitory Rate 17 11/09/2017 [facility] Systolic (mm Hg) 139 11/09/2017 [facility] Diastolic (mm Hg) 86 11/09/2017 [facility] Temperature Oral (F) 97.6 F 11/09/2017 [facility] Height 165.1 cm 11/09/2017 [facility] BMI Calculated 30.02 11/09/2017 [facility] Weight 81.818 11/09/2017 [facility] Heart Rate 141 11/09/2017 [facility] Temperature Oral (F) 98.4 F 11/09/2017 [facility] Height 165.1 cm 05/06/2013 [facility] Weight 83.182 05/06/2013 [facility] Weight 83.182 05/06/2013 [facility] Height 165.1 cm 05/06/2013 [facility] Height 165.1 cm 03/10/2013 [facility] Weight 83.636 03/10/2013 [facility] Encounters Location Location Details Encounter Type Encounter Number Reason For Visit Attending Provider ADM Date DC Date Status Source [facility] Outpatient [id number] RUQ PAIN IRMA SOUZA 12/12/2012 Active [facility] Emergency [id number] JASON BENNETT 03/09/2013 03/09/2013 Discharged [facility] [id number] AMY MOORE 05/06/2013 05/06/2013 Active [facility] [id number] Femi De Leon 11/09/2017 11/09/2017 [facility] Observation [id number] Stephanie Matson 06/22/2019 06/24/2019 [facility] Procedures No Data Provided for This Section Assessment and Plan Assessment and Plan Date Source Extracted from:Title: Progress Note Comp natasha * Author: Stephanie Matson MD Date: 06/23/19 [...] Dispo - home pending surgery clearance. Extracted from:Title: General Surgery Author: Long Ivory MD Date: 06/22/19 Impression and Plan 1) mild acute appendicitis 2) history of tachycardia 3) gastritis --[facility] --Regarding the acute appendicitis, she will [...] patient is to follow with her primary graduate assistant for possibly repeat EGD since she continues with persistent epigastric pain post cholecystectomy about a year ago. Thank you for this consult. We will continue to follow the patient with you. Extracted from:Title: History and Physical Author: Eugenia Chavez MD Date: 06/22/19 Appendicitis, acute(K35.80) Ordered: Admit/Condition, 06/22/19 18:16:00 CDT, Status: Out Patient with Observation Services, Acute, Expected LOS: 2 Midnights, Eugenia Chavez MD, Admit Review/Approve Yes, Isolation: No Isolation/Standard Precautions, Appendicitis, acute 06/24/2019 [facility] Plan of Care No Data Provided for This Section Social History Social History Date Source Social History TypeResponse Alcohol Never, Previous treatment: None. Alcohol use interferes with work or home: No. Drinks more than intended: No. Others hurt by drinking: No. Ready to change: No. Household alcohol concerns: No. Smoking Status Never smoker; Ready to change: No; Concerns about tobacco use in household: No; Exposure to Tobacco Smoke None; Cigarette Smoking Last 365 Days No; Reg Smoking Cessation Counseling No entered on: 06/22/19 06/22/2019 [facility] Family History No Data Provided for This Section Advance Directives No Data Provided for This Section Functional Status No Data Provided for This Section
--- OUTSIDE RECORDS SUMMARY | 2020-05-15 16:30 | XMS REPORT | CCD ---
Author Author Auto Generated, AMOS [employer] Organization [facility] Address Unknown Phone Unavailable Care Team Providers Care Burglar Alarm Assembler Name Role Phone Kia Karlocharlotte Bills CP Allergies, Adverse Reactions, Alerts Substance Reaction Status NKDA NKDA Active Problem List Condition Effective Dates Status Tachycardia Resolved Vital Signs Most recent to oldest [Reference Range]: 1 2 Height 165.1 cm (05/06/2013 02:12:00) 165.1 cm (05/06/2013 02:04:00) Weight 83.182 kg (05/06/2013 02:12:00) 83.182 kg (05/06/2013 02:04:00) Results IMMUNOLOGY Most recent to oldest [Reference Range]: 1 CDC-HIV 1/2 Ab [Negative] Negative *NA* (05/06/2013 02:15:00)
--- OUTSIDE RECORDS SUMMARY | 2020-05-15 16:31 | XMS REPORT | Continuity of Care Document ---
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 pria and focal Muscularis propria. The stains show this to be prominent and incr eased vascular spaces.AE1/AE3- negative in lesional area (cleft like spaces in l kar propria and focal muscularis propria)CAM 5.2- negative in lesional area (c left like spaces in lamina propria and focal muscularis propria)CD34- posit jayme in lesional area, compatible with vascular lumen (cleft like spaces in kapil a propria and focal muscularis propria)Calretinin-negative in lesional area (jose ft like spaces in lamina propria and focal muscularis propria) internal and exte rnal controls are adequateBlock BTrichrome-focally increased in portal tractReti culin- normal trabeculaePAS-D- no abnormal intracellular deposits seenIron-negat iveControls adequate.ANTI-MITOCHONDRIAL AB, REFLEX TO [id number] 10:42:00* Test Item Value Reference Range Interpretation Comments SCAN RESULT (test code = 0275417) BASIC METABOLIC [id number] 07:52:00* Test Item Value Reference Range Interpretation Comments SODIUM (BEAKER) (test code = 381) 137 meq/L 136-145 POTASSIUM (BEAKER) (test code = 379) 4.0 meq/L 3.5-5.1 CHLORIDE (BEAKER) (test code = 382) 107 meq/L 98-107 CO2 (BEAKER) (test code = 355) 23 meq/L 22-29 BLOOD UREA NITROGEN (BEAKER) (test code = 354) 11 mg/dL 7-21 CREATININE (BEAKER) (test code = 358) 0.60 mg/dL 0.57-1.25 GLUCOSE RANDOM (BEAKER) (test code = 652) 85 mg/dL 70-105 CALCIUM (BEAKER) (test code = 697) 9.3 mg/dL 8.4-10.2 EGFR (BEAKER) (test code = 1092) mL/min/1.73 sq m INSUFFICIENT CLINICAL DATA TO CALCULATE ESTIMATED GFR. [id number] 07:50:00* Test Item Value Reference Range Interpretation Comments MAGNESIUM (BEAKER) (test code = 627) 2.0 mg/dL 1.6-2.6 HEPATIC FUNCTION [id number] 07:50:00* Test Item Value Reference Range Interpretation Comments TOTAL PROTEIN (BEAKER) (test code = 770) 6.5 gm/dL 6.0-8.3 ALBUMIN (BEAKER) (test code = 1145) 3.5 g/dL 3.5-5.0 BILIRUBIN TOTAL (BEAKER) (test code = 377) 0.8 mg/dL 0.2-1.2 BILIRUBIN DIRECT (BEAKER) (test code = 706) 0.3 mg/dL 0.1-0.5 ALKALINE PHOSPHATASE (BEAKER) (test code = 346) 128 U/L 40-150 AST (SGOT) (BEAKER) (test code = 353) 39 U/L 5-34 H ALT (SGPT) (BEAKER) (test code = 347) 247 U/L 6-55 H PROTHROMBIN TIME/[id number] 07:36:00* Test Item Value Reference Range Interpretation Comments PROTIME (BEAKER) (test code = 759) 14.5 seconds 11.7-14.7 INR (BEAKER) (test code = 370) 1.1 <=5.9 RECOMMENDED COUMADIN/WARFARIN INR THERAPY RANGESSTANDARD DOSE: 2.0 - 3.0 Inclu kylie: PROPHYLAXIS for venous thrombosis, systemic embolization; TREATMENT for shannan ous thrombosis and/or pulmonary embolus.HIGH RISK: Target INR is 2.5-3.5 for pat ients with mechanical heart valves.CBC (HEMOGRAM ONLY)2018-09-07 07:26:00* Test Item Value Reference Range Interpretation Comments WHITE BLOOD CELL COUNT (BEAKER) (test code = 775) 7.5 K/ L 3.5- 10.5 RED BLOOD CELL COUNT (BEAKER) (test code = 761) 3.91 M/ L 3.93-5 .22 L HEMOGLOBIN (BEAKER) (test code = 410) 9.9 GM/DL 11.2-15.7 L HEMATOCRIT (BEAKER) (test code = 411) 31.9 % 34.1-44.9 L MEAN CORPUSCULAR VOLUME (BEAKER) (test code = 753) 81.6 fL 79. 4-94.8 MEAN CORPUSCULAR HEMOGLOBIN (BEAKER) (test code = 751) 25.3 pg 25.6-32.2 L MEAN CORPUSCULAR HEMOGLOBIN CONC (BEAKER) (test code = 752) 31.0 GM/DL 32.2-35.5 L RED CELL DISTRIBUTION WIDTH (BEAKER) (test code = 412) 14.9 % 11.7-14.4 H PLATELET COUNT (BEAKER) (test code = 756) 337 K/CU MM 150-450 MEAN PLATELET VOLUME (BEAKER) (test code = 754) 8.7 fL 9.4-12 .3 L NUCLEATED RED BLOOD CELLS (BEAKER) (test code = 413) 0 /100 WBC 0 -0 MR, ABDOMEN, [id number] 10:08:00FINAL REPORT MRI of the abdomen, MRCP. HISTORY: Abnormal liver function tests. COMPARISON STUDY: Ultrasound dated September 04, 2018. TECHNIQUE: Multiplanar, multisequence images of the abdomen were acquired without the administration of intravenous gadolinium as per the MRCP protocol. Three-dimensional reconstructions were acquired and utilized by the dictating radiologist at the time of interpretation. FINDINGS: No pleural effusion is seen. The abdomen is limited by lack of contrast. The liver is homogeneous in signal with no focal masses. The spleen, pancreas and adrenal glands are unremarkable. There are increased T2- weighted lesions in both kidneys measuring up to 1.3 cm on the left side, statistically most likely cysts. There are no dilated loops of bowel seen to suggest obstruction. The aorta is normal in caliber. No suspicious adenopathy is seen. MRCP demonstrates no evidence of intra or extra hepatic biliary dilatation with the CBD measuring 5 mm. No choledocholithiasis is seen. A 2 cm gallstone is seen in a contracted gallbladder. The pancreatic duct is normal in caliber. The visualized osseous structures are within normal limits. IMPRESSION:1. Cholel ithiasis.2. No evidence of choledocholithiasis or biliary dilatation.3. Other fi ndings as described above. Signed: Matthew Rosales MDReport Verified Date/Time: 09/06/2018 10:08:57 Reading Location: [address] Radiology Reading Room C METABOLIC [id number] 06:44:00* Test Item Value Reference Range Interpretation Comments SODIUM (BEAKER) (test code = 381) 139 meq/L 136-145 POTASSIUM (BEAKER) (test code = 379) 3.9 meq/L 3.5-5.1 CHLORIDE (BEAKER) (test code = 382) 109 meq/L 98-107 H CO2 (BEAKER) (test code = 355) 22 meq/L 22-29 BLOOD UREA NITROGEN (BEAKER) (test code = 354) 9 mg/dL 7-21 CREATININE (BEAKER) (test code = 358) 0.59 mg/dL 0.57-1.25 GLUCOSE RANDOM (BEAKER) (test code = 652) 91 mg/dL 70-105 CALCIUM (BEAKER) (test code = 697) 9.1 mg/dL 8.4-10.2 EGFR (BEAKER) (test code = 1092) mL/min/1.73 sq m INSUFFICIENT CLINICAL DATA TO CALCULATE ESTIMATED GFR. PROTHROMBIN [id number] 06:42:00* Test Item Value Reference Range Interpretation Comments PROTIME (BEAKER) (test code = 759) 14.3 seconds 11.7-14.7 INR (BEAKER) (test code = 370) 1.1 <=5.9 RECOMMENDED COUMADIN/WARFARIN INR THERAPY RANGESSTANDARD DOSE: 2.0 - 3.0 Inclu kylie: PROPHYLAXIS for venous thrombosis, systemic embolization; TREATMENT for shannan ous thrombosis and/or pulmonary embolus.HIGH RISK: Target INR is 2.5-3.5 for pat ients with mechanical heart valves.[id number] 06:42:00* Test Item Value Reference Range Interpretation Comments MAGNESIUM (BEAKER) (test code = 627) 2.0 mg/dL 1.6-2.6 HEPATIC FUNCTION [id number] 06:42:00* Test Item Value Reference Range Interpretation Comments TOTAL PROTEIN (BEAKER) (test code = 770) 6.6 gm/dL 6.0-8.3 ALBUMIN (BEAKER) (test code = 1145) 3.6 g/dL 3.5-5.0 BILIRUBIN TOTAL (BEAKER) (test code = 377) 0.5 mg/dL 0.2-1.2 BILIRUBIN DIRECT (BEAKER) (test code = 706) 0.2 mg/dL 0.1-0.5 ALKALINE PHOSPHATASE (BEAKER) (test code = 346) 142 U/L 40-150 AST (SGOT) (BEAKER) (test code = 353) 78 U/L 5-34 H ALT (SGPT) (BEAKER) (test code = 347) 388 U/L 6-55 H CBC (HEMOGRAM ONLY)2018-09-06 06:18:00* Test Item Value Reference Range Interpretation Comments WHITE BLOOD CELL COUNT (BEAKER) (test code = 775) 4.5 K/ L 3.5- 10.5 RED BLOOD CELL COUNT (BEAKER) (test code = 761) 3.91 M/ L 3.93-5 .22 L HEMOGLOBIN (BEAKER) (test code = 410) 9.9 GM/DL 11.2-15.7 L HEMATOCRIT (BEAKER) (test code = 411) 32.4 % 34.1-44.9 L MEAN CORPUSCULAR VOLUME (BEAKER) (test code = 753) 82.9 fL 79. 4-94.8 MEAN CORPUSCULAR HEMOGLOBIN (BEAKER) (test code = 751) 25.3 pg 25.6-32.2 L MEAN CORPUSCULAR HEMOGLOBIN CONC (BEAKER) (test code = 752) 30.6 GM/DL 32.2-35.5 L RED CELL DISTRIBUTION WIDTH (BEAKER) (test code = 412) 14.7 % 11.7-14.4 H PLATELET COUNT (BEAKER) (test code = 756) 323 K/CU MM 150-450 MEAN PLATELET VOLUME (BEAKER) (test code = 754) 9.1 fL 9.4-12 .3 L NUCLEATED RED BLOOD CELLS (BEAKER) (test code = 413) 0 /100 WBC 0 -0 URINALYSIS W/ REFLEX URINE [id number] 08:47:00* Test Item Value Reference Range Interpretation Comments COLOR (BEAKER) (test code = 470) Yellow CLARITY (BEAKER) (test code = 469) Clear SPECIFIC GRAVITY UA (BEAKER) (test code = 468) 1.023 1.001-1 .035 PH UA (BEAKER) (test code = 467) 5.5 5.0-8.0 PROTEIN UA (BEAKER) (test code = 464) 20 mg/dL Negative A GLUCOSE UA (BEAKER) (test code = 365) Negative Negative KETONES UA (BEAKER) (test code = 371) Negative Negative BILIRUBIN UA (BEAKER) (test code = 462) Negative Negative BLOOD UA (BEAKER) (test code = 461) Large Negative A NITRITE UA (BEAKER) (test code = 465) Negative Negative LEUKOCYTE ESTERASE UA (BEAKER) (test code = 466) Trace Negat jayme A UROBILINOGEN UA (BEAKER) (test code = 463) 0.2 mg/dL 0.2-1.0 RBC UA (BEAKER) (test code = 519) 1430 /HPF WBC UA (BEAKER) (test code = 520) 57 /HPF MUCUS (BEAKER) (test code = 1574) Rare SQUAMOUS EPITHELIAL (BEAKER) (test code = 516) 1 /HPF SOURCE(BEAKER) (test code = 2795) SCREEN, [id number] 08:46:00* Test Item Value Reference Range Interpretation Comments TEST URINE (BEAKER) (test code = 583) Negative [id number] 05:45:00* Test Item Value Reference Range Interpretation Comments FERRITIN (BEAKER) (test code = 361) 20 ng/mL 5-275 HEPATITIS B SURFACE [id number] 05:44:00* Test Item Value Reference Range Interpretation Comments HEPATITIS B SURFACE ANTIBODY (BEAKER) (test code = 647) < mIU/mL <8.0 HEPATITIS A ANTIBODY, [id number] 05:44:00* Test Item Value Reference Range Interpretation Comments HEPATITIS A IGG ANTIBODY (BEAKER) (test code = 2797) Reactive N onreactive A TSH/FREE T4 IF [id number] 05:33:00* Test Item Value Reference Range Interpretation Comments THYROID STIMULATING HORMONE (BEAKER) (test code = 772) 1.47 uIU/mL 0.35-4.94 HEPATITIS B CORE ANTIBODY, [id number] 05:31:00* Test Item Value Reference Range Interpretation Comments HEPATITIS B CORE TOTAL ANTIBODY (BEAKER) (test code = 497) N onreactive Nonreactive GAMMA GLUTAMYL TRANSFERASE (GGT)2018-09-05 05:26:00* Test Item Value Reference Range Interpretation Comments GAMMA GLUTAMYL TRANSFERASE (BEAKER) (test code = 364) 169 U/L 9-64 H ANTI-NUCLEAR ANTIBODY (DELFINA)2018-09-05 05:24:00* Test Item Value Reference Range Interpretation Comments ANTI-NUCLEAR ANTIBODY (DELFINA) (BEAKER) (test code = 418) Negative Negative Test performed by IFA method.Test performed by IFA method.BASIC METABOLIC PANEL 2018-09-05 05:17:00* Test Item Value Reference Range Interpretation Comments SODIUM (BEAKER) (test code = 381) 142 meq/L 136-145 POTASSIUM (BEAKER) (test code = 379) 4.0 meq/L 3.5-5.1 CHLORIDE (BEAKER) (test code = 382) 110 meq/L 98-107 H CO2 (BEAKER) (test code = 355) 26 meq/L 22-29 BLOOD UREA NITROGEN (BEAKER) (test code = 354) 12 mg/dL 7-21 CREATININE (BEAKER) (test code = 358) 0.68 mg/dL 0.57-1.25 GLUCOSE RANDOM (BEAKER) (test code = 652) 93 mg/dL 70-105 CALCIUM (BEAKER) (test code = 697) 9.7 mg/dL 8.4-10.2 EGFR (BEAKER) (test code = 1092) mL/min/1.73 sq m INSUFFICIENT CLINICAL DATA TO CALCULATE ESTIMATED GFR. IRON, TIBC, % SAT. (WITHOUT FERRITIN)2018-09-05 05:16:00* Test Item Value Reference Range Interpretation Comments IRON (BEAKER) (test code = 547) 54 ug/dL 40-160 TOTAL IRON BINDING CAPACITY (BEAKER) (test code = 769) 369 ug/dL 250-450 IRON % SATURATION (2) (BEAKER) (test code = 2590) 15 % 20-5 5 L [id number] 05:14:00* Test Item Value Reference Range Interpretation Comments PHOSPHORUS (BEAKER) (test code = 604) 3.5 mg/dL 2.3-4.7 [id number] 05:14:00* Test Item Value Reference Range Interpretation Comments MAGNESIUM (BEAKER) (test code = 627) 2.1 mg/dL 1.6-2.6 HEPATIC FUNCTION [id number] 05:14:00* Test Item Value Reference Range Interpretation Comments TOTAL PROTEIN (BEAKER) (test code = 770) 6.9 gm/dL 6.0-8.3 ALBUMIN (BEAKER) (test code = 1145) 3.7 g/dL 3.5-5.0 BILIRUBIN TOTAL (BEAKER) (test code = 377) 0.6 mg/dL 0.2-1.2 BILIRUBIN DIRECT (BEAKER) (test code = 706) 0.3 mg/dL 0.1-0.5 ALKALINE PHOSPHATASE (BEAKER) (test code = 346) 168 U/L 40-150 H AST (SGOT) (BEAKER) (test code = 353) 276 U/L 5-34 H ALT (SGPT) (BEAKER) (test code = 347) 667 U/L 6-55 H PROTHROMBIN TIME/[id number] 05:12:00* Test Item Value Reference Range Interpretation Comments PROTIME (BEAKER) (test code = 759) 15.1 seconds 11.7-14.7 H INR (BEAKER) (test code = 370) 1.2 <=5.9 RECOMMENDED COUMADIN/WARFARIN INR THERAPY RANGESSTANDARD DOSE: 2.0 - 3.0 Inclu kylie: PROPHYLAXIS for venous thrombosis, systemic embolization; TREATMENT for shannan ous thrombosis and/or pulmonary embolus.HIGH RISK: Target INR is 2.5-3.5 for pat ients with mechanical heart valves.IMMUNOGLOBULIN G (IGG)2018-09-05 05:11:00* Test Item Value Reference Range Interpretation Comments IMMUNOGLOBULIN G (IGG) (BEAKER) (test code = 427) 1086 mg/dL 540- 1,822 [id number] 05:10:00* Test Item Value Reference Range Interpretation Comments ALPHA-1 ANTITRYPSIN (BEAKER) (test code = 502) 141.50 mg/dL 90.00-2 00.00 CBC (HEMOGRAM ONLY)2018-09-05 04:51:00* Test Item Value Reference Range Interpretation Comments WHITE BLOOD CELL COUNT (BEAKER) (test code = 775) 5.5 K/ L 3.5- 10.5 RED BLOOD CELL COUNT (BEAKER) (test code = 761) 3.99 M/ L 3.93-5 .22 HEMOGLOBIN (BEAKER) (test code = 410) 10.1 GM/DL 11.2-15.7 L HEMATOCRIT (BEAKER) (test code = 411) 32.7 % 34.1-44.9 L MEAN CORPUSCULAR VOLUME (BEAKER) (test code = 753) 82.0 fL 79. 4-94.8 MEAN CORPUSCULAR HEMOGLOBIN (BEAKER) (test code = 751) 25.3 pg 25.6-32.2 L MEAN CORPUSCULAR HEMOGLOBIN CONC (BEAKER) (test code = 752) 30.9 GM/DL 32.2-35.5 L RED CELL DISTRIBUTION WIDTH (BEAKER) (test code = 412) 14.9 % 11.7-14.4 H PLATELET COUNT (BEAKER) (test code = 756) 344 K/CU MM 150-450 MEAN PLATELET VOLUME (BEAKER) (test code = 754) 9.0 fL 9.4-12 .3 L NUCLEATED RED BLOOD CELLS (BEAKER) (test code = 413) 0 /100 WBC 0 -0 U/S, DUPLEX, [id number] 23:00:00Please do with doppler to assess vasculature Reason for exam:->elevated AST/ALTFINAL REPORT INDICATION: elevated AST/ALT COMPARISON: Same day abdominal ultrasound. TECHNIQUE: Real-time color and spectral Doppler ultrasound. FINDINGS: Regional Vasculature: The visible abdominal aorta, IVC and hepatic veins are patent. Color and Spectral imaging:MPV: Diameter: 1.0cm Flow: Hepatopedal. Velocity: 30.4 cm/sec Filling defects: NoneLeft and right portal veins: Patent. Flow: Antegrade Filling defects: None. Hepatic arteries: Patent RI proper hepatic: 0.6 RI right hepatic: 0.6 RI left hepatic: 0.6 IVC, Hepatic venous confluence, right HV, middle HV and left HV are patent. Additional findings: None. IMPRESSION: Unremarkable hepatic Doppler. Signed: Melissa Adhikari Verified Date/Time: 09/04/2018 23:00:17 Reading Location: [facility] C013T Transitional Reading Room AMINOPHEN [id number] 17:26:00* Test Item Value Reference Range Interpretation Comments ACETAMINOPHEN LEVEL (BEAKER) (test code = 344) < ug/mL 10.0-30 .0 L Therapeutic Range: 10.0-30.0 g/mLToxic Levels: >200.0 g/mLHEPATITIS PANEL, [id number] 15:59:00* Test Item Value Reference Range Interpretation Comments HEPATITIS A IGM ANTIBODY (BEAKER) (test code = 498) Nonreactive No nreactive HEPATITIS B CORE IGM ANTIBODY (BEAKER) (test code = 645) Non reactive Nonreactive HEPATITIS C ANTIBODY (BEAKER) (test code = 367) Nonreactive Nonrea ctive HEPATITIS B SURFACE ANTIGEN (2) (BEAKER) (test code = 2585) Nonreactive Nonreactive HIV-1 ANTIGEN WITH HIV-1/2 [id number] 15:59:00* Test Item Value Reference Range Interpretation Comments HIV-1 ANTIGEN WITH HIV 1\\T\\2 ANTIBODY (2) (BEAKER) (te st code = 2586) Nonreactive Nonreactive [id number] 15:25:00* Test Item Value Reference Range Interpretation Comments ETHANOL (BEAKER) (test code = 400) < mg/dL <=10 [id number] 15:16:00* Test Item Value Reference Range Interpretation Comments PROTIME (BEAKER) (test code = 759) 15.3 seconds 11.7-14.7 H INR (BEAKER) (test code = 370) 1.2 <=5.9 PARTIAL THROMBOPLASTIN TIME (BEAKER) (test code = 760) 25.8 seconds 22.5-36.0 RECOMMENDED COUMADIN/WARFARIN INR THERAPY RANGESSTANDARD DOSE: 2.0 - 3.0 Inclu kylie: PROPHYLAXIS for venous thrombosis, systemic embolization; TREATMENT for shannan ous thrombosis and/or pulmonary embolus.HIGH RISK: Target INR is 2.5-3.5 for pat ients with mechanical heart valves.U/S, ABDOMINAL, [id number] 13:20:00 Abdomen limited area? Add comment if clarification is needed.->Right upper quadrantReason for exam:->ABDOMINAL PAINFINAL REPORT Right Upper Quadrant Ultrasound Clinical Diagnosis: Abdomen pain Comparison: No comparison Technique: Multiple transaxial and longitudinal images were obtained through the right upper quadrant with real time ultrasonography. Five mHz transducer was utilized. 67 images were submitted for interpretation. Report:Liver: The liver measures 13.8 cm in the right midaxillary line. There are no focal masses. The echogenicity is within normal limits.Gallbladder: The transverse diameter is 1.5 cm. The wall measures three mm. There are shadowing stones visualized. Biliary tree: There is no evidence of intra or extra hepatic biliary ductal dilatation. The common bile duct is not adequately visualized secondary to overlying bowel gas Portal vein: The portal vein measures 10 mm. Ascites: NegativePleural Effusion: NegativeRight kidney: The right kidney measures 10.1 cm. in length without evidence of hydro nephrosis. Incidentally noted are nonobstructing 4 mm right renal stones.Aorta a nd IVC: Midline abdominal structures and not well visualized. Maximum transvers e dimension is 2.3 cm. Impression:Cholelithiasis. The gallbladder is not distend ed.Nonobstructing renal stones measuring at most 4 mm.. Signed: Soco Patel eport Verified Date/Time: 09/04/2018 13:20:17 Reading Location: [facility] P006J [facility] Reading Room Electronically signed by: SOCO PATEL M.D. on 09/04 01:20 PM RAD, CHEST, 1 VIEW, NON [id number] 10:54:00Reason for exam:-> chest painIs the patient ?->UnknownShould this be performed at the bedside?->YesFINAL REPORT Chest one view. Clinical history: chest pain Comparison: No priors Discussion: A frontal chest is provided. The cardiac and mediastinal contours are normal. There is no pneumothorax, addison pulmonary edema, consolidation or significant pleural effusion. The bony structures are unremarkable. Signed: Jose Villarrealeport Verified Date/Time: 09/04/2018 10:54:45 Reading Location: [facility] Reading Room REHENSIVE METABOLIC [id number] 10:46:00* Test Item Value Reference Range Interpretation Comments TOTAL PROTEIN (BEAKER) (test code = 770) 7.8 gm/dL 6.0-8.3 ALBUMIN (BEAKER) (test code = 1145) 4.3 g/dL 3.5-5.0 ALKALINE PHOSPHATASE (BEAKER) (test code = 346) 200 U/L 40-150 H BILIRUBIN TOTAL (BEAKER) (test code = 377) 1.3 mg/dL 0.2-1.2 H SODIUM (BEAKER) (test code = 381) 139 meq/L 136-145 POTASSIUM (BEAKER) (test code = 379) 4.0 meq/L 3.5-5.1 CHLORIDE (BEAKER) (test code = 382) 106 meq/L 98-107 CO2 (BEAKER) (test code = 355) 28 meq/L 22-29 BLOOD UREA NITROGEN (BEAKER) (test code = 354) 9 mg/dL 7-21 CREATININE (BEAKER) (test code = 358) 0.64 mg/dL 0.57-1.25 GLUCOSE RANDOM (BEAKER) (test code = 652) 92 mg/dL 70-105 CALCIUM (BEAKER) (test code = 697) 10.1 mg/dL 8.4-10.2 AST (SGOT) (BEAKER) (test code = 353) 1072 U/L 5-34 H ALT (SGPT) (BEAKER) (test code = 347) 1042 U/L 6-55 H EGFR (BEAKER) (test code = 1092) mL/min/1.73 sq m INSUFFICIENT CLINICAL DATA TO CALCULATE ESTIMATED GFR. [id number] 10:45:00* Test Item Value Reference Range Interpretation Comments LIPASE (BEAKER) (test code = 749) 31 U/L 8-78 CBC W/PLT COUNT & AUTO [id number] 10:23:00* Test Item Value Reference Range Interpretation Comments WHITE BLOOD CELL COUNT (BEAKER) (test code = 775) 7.0 K/ L 3.5- 10.5 RED BLOOD CELL COUNT (BEAKER) (test code = 761) 4.23 M/ L 3.93-5 .22 HEMOGLOBIN (BEAKER) (test code = 410) 10.7 GM/DL 11.2-15.7 L HEMATOCRIT (BEAKER) (test code = 411) 34.5 % 34.1-44.9 MEAN CORPUSCULAR VOLUME (BEAKER) (test code = 753) 81.6 fL 79. 4-94.8 MEAN CORPUSCULAR HEMOGLOBIN (BEAKER) (test code = 751) 25.3 pg 25.6-32.2 L MEAN CORPUSCULAR HEMOGLOBIN CONC (BEAKER) (test code = 752) 31.0 GM/DL 32.2-35.5 L RED CELL DISTRIBUTION WIDTH (BEAKER) (test code = 412) 14.6 % 11.7-14.4 H PLATELET COUNT (BEAKER) (test code = 756) 342 K/CU MM 150-450 MEAN PLATELET VOLUME (BEAKER) (test code = 754) 8.8 fL 9.4-12 .3 L NUCLEATED RED BLOOD CELLS (BEAKER) (test code = 413) 0 /100 WBC 0 -0 NEUTROPHILS RELATIVE PERCENT (BEAKER) (test code = 429) 72 % LYMPHOCYTES RELATIVE PERCENT (BEAKER) (test code = 430) 17 % MONOCYTES RELATIVE PERCENT (BEAKER) (test code = 431) 7 % EOSINOPHILS RELATIVE PERCENT (BEAKER) (test code = 432) 4 % BASOPHILS RELATIVE PERCENT (BEAKER) (test code = 437) 0 % NEUTROPHILS ABSOLUTE COUNT (BEAKER) (test code = 670) 5.03 K/ L 1.56-6.13 LYMPHOCYTES ABSOLUTE COUNT (BEAKER) (test code = 414) 1.18 K/ L 1.18-3.74 MONOCYTES ABSOLUTE COUNT (BEAKER) (test code = 415) 0.50 K/ L 0. 24-0.36 H EOSINOPHILS ABSOLUTE COUNT (BEAKER) (test code = 416) 0.26 K/ L 0.04-0.36 BASOPHILS ABSOLUTE COUNT (BEAKER) (test code = 417) 0.02 K/ L 0. 01-0.08 IMMATURE GRANULOCYTES-RELATIVE PERCENT (BEAKER) (test code = 2801) 0 % 0-1 URINE AND [id number] 01:50:28Negative (11/08/17 7:50 PM)[facility] [id number] 01:50:28Negative *NA*(11/08/17 7:50 PM)[facility] [id number] 01:50:28Clear (11/08/17 7:50 PM)[facility] [id number] 01:50:28* Test Item Value Reference Range Interpretation Comments UA Spec Grav (test code = UA Spec Grav) 1.018 1 [facility] [id number] 01:50:28Trace *ABN*(11/08/17 7:50 PM) [facility] [id number] 01:50:28Negative (11/08/17 7:50 PM) [facility] [id number] 01:50:28* Test Item Value Reference Range Interpretation Comments UA pH (test code = UA pH) 6.0 1 5.0-8.0 [facility] [id number] 01:50:282[facility] [id number] 01:50:281[facility] [id number] 01:23:001.2 [facility] [id number] 01:23:60276Visdhvfj HermannCARDIAC [id number] 01:23:00<0.02[facility] [id number] 01:23:00* Test Item Value Reference Range Interpretation Comments CK MB Index (test code = CK MB Index) 1.1 1 <=2.5 [facility]CHE[facility] [id number] 01:23:17717Qwomyfvu HermannCHEM PANEL 2017-11-09 01:23:0015[facility]CHE[facility] [id number] 01:23:009.4[facility]CHE[facility] [id number] 01:23:0028[facility]annCHE[facility] [id number] 01:23:003.9[facility] [id number] 01:23:008.2[facility]annCHE[facility] [id number] 01:23:0098[facility]CHE[facility] [id number] 01:23:0015.2 [facility] [id number] 01:23:000.3[facility]annCHE[facility] PANEL 2017-11-09 01:23:004.3[facility]CHE[facility] [id number] 01:23:00* Test Item Value Reference Range Interpretation Comments B/C Ratio (test code = B/C Ratio) 18 1 6-25 [facility] [id number] 01:23:00* Test Item Value Reference Range Interpretation Comments A/G Ratio (test code = A/G Ratio) 0.9 1 0.7-1.6 [facility]CHE[facility] [id number] 01:23:84963Sqluynvu HermannCHEM PANEL 2017-11-09 01:23:000.66[facility] HermannCHEM HIWOA7947-37-06 01:23:0012[facility] HermannCHEM CRUQL4077-28-10 01:23:47251Sqgrhivu HermannCHEM MXQOM6284-15-18 01:23:0021[facility] HermannCHEM YNSCQ9634-82-45 01:23:003.2[facility] HermannCHEM LAUVV5150-05-79 01:23:36321Umfthysu XxturreDLPRRNRANRKPV0446-36-88 01:23:00 Negative *NA*(11/08/17 7:23 PM)[facility] SrhsfjlBQCYAYDKHE1580-60-25 01:23:007.5 [facility] JigdoovYMPGGWCJUW1393-30-34 01:23:0014.9[facility] HermannHEMATOLOGY 2017-11-09 01:23:0033.5[facility] FlgetmrUVSGWLWULX7806-16-86 01:23:08034Uyxklbkq SvthypkXRBMVGZXEA6101-76-34 01:23:0011.2[facility] DgwmhqeUWVXUERSZF3395-25-57 01:23:004.69[facility] WccyguaQWUUHIXJDF1578-62-78 01:23:0013.2[facility] YLJFGCRFMZ7379-19-08 01:23:0039.5[facility] YmktsasPHDXVIRHSM2413-35-15 01:23:00* Test Item Value Reference Range Interpretation Comments MCH (test code = MCH) 28.2 pg 27.0-31.0 [facility] NobnnbvATRERYUXFD7293-44-36 01:23:0084.3[facility] HermannHEMATOLOGY 2017-11-09 01:23:0046.8[facility] DohdtohZPHJHBLGXH6039-07-88 01:23:0043.0[facility] IyebpfoSVPDXVWGIY1394-28-91 01:23:005.1[facility] LgupqrcFOIHARBHXR3148-17-94 01:23:000.6[facility] DgbnlgnZLQMNDAARL5237-92-64 01:23:004.5[facility] YIZNAMKPNK6472-51-04 01:23:005.2[facility] WwxazidOWTUTZIPKE9028-01-09 01:23:004.8 [facility] ZxceenhKCAAJBDFEL9796-87-61 01:23:000.6[facility] HermannHEMATOLOGY 2017-11-09 01:23:000.1[facility] ByznycfGRLSPQOUIJ8175-56-00 01:23:000.5[facility] XzlolchZZTJAFLHMM8328-82-90 07:15:00Negative *NA*(05/06/2013 02:15:00) [facility] WyquifjTJJSARFES8637-43-08 01:24:72936Xzqxcdtq IwultjkCYRSPDCTV1467-44-34 01:24:0041[facility] MnctlhuGAWVBMJFQ6779-96-42 01:24:0098[facility] XBUDSTSNH3392-77-39 01:24:0083[facility] ZhyprirBVPAZDSLD2134-88-58 01:24:0017 [facility] YleqiceQKWXASMHM7227-32-82 01:24:000.3[facility] HermannCHEMISTRY 2013-03-10 01:24:008.1[facility] ZcewafaMSUOWOGAZ9980-15-96 01:24:0033[facility] FpypzozIXBIOLGSH8564-70-80 01:24:004.0[facility] TuqyklsJXPNPDMBG9666-30-34 01:24:000.8[facility] KukklayZNUSFKXUT9597-10-47 01:24:0028[facility] [place] JLOBKCRQU9353-38-73 01:24:0080[facility] FcvlxndHVWGZPFXQ6190-09-33 01:24:0011 [facility] UriigagNZHSVXAZE0406-99-66 01:24:009.0[facility] HermannCHEMISTRY 2013-03-10 01:24:66509Vymyugfc AypshaoEDLEFYFSR3623-01-83 01:24:004.2[facility] NazavgmMCRSZMFDA0833-95-87 01:24:64495Gbvsigxx OobfqmiFSIRIDDKU3381-18-27 01:24:0012.2[facility] YjsdqzeWQPAQZIFX7163-44-82 01:24:0014[facility] ZFNUTLSKE7293-91-31 01:24:004.1[facility] KkmrykcFUXMXJXKJ9325-24-25 01:24:001.0 [facility] QlmicxlECCAYEHHZM2820-43-66 01:24:0014.6[facility] HermannHEMATOLOGY 2013-03-10 01:24:14624Oabeiyis GcyasfoSGEHYKNNRL1221-45-32 01:24:007.2[facility] MwarevyVHOUJWTRWD1797-78-90 01:24:0033.1[facility] VejcvdlGADPFYWDIY5330-05-71 01:24:00* Test Item Value Reference Range Interpretation Comments MCH (test code = MCH) 28.1 pg 27.0-31.0 N [facility] ZwfvsxxJBNRAXQGKH1347-85-98 01:24:004.65[facility] HermannHEMATOLOGY 2013-03-10 01:24:0085.1[facility] GhfzgyxNYEHXKASFJ5814-19-95 01:24:0013.1[facility] LyvnsbkIOSMLMUFUV9161-81-17 01:24:009.2[facility] HpnmkekPJJLIDYMJY3104-75-90 01:24:0039.5[facility] PxhbqloAJNHNFKMFU7909-05-92 01:24:000.3[facility] [place] WIEDWJYZKC7908-75-08 01:24:005.3[facility] QbvfbqdFTKNZIDKBB8566-87-68 01:24:004.5 [facility] JcesfpnINJCHMDKZI6158-08-93 01:24:005.9[facility] HermannHEMATOLOGY 2013-03-10 01:24:0049.3[facility] IslrflsSNHTIRQELC5941-55-47 01:24:0039.2[facility] LnjotpsBFJORKXWHY3022-16-82 01:24:000.5[facility] XvlxeiyODIJCMGYQS8415-47-25 01:24:000.5[facility] OiwzcwhJJAHVMDJDS2321-89-21 01:24:000.0[facility] VZIYPTZPBL5079-99-37 01:24:003.6[facility] SlrxgpsYRLGVEXQZ7722-43-49 01:02:00 Negative (03/09/2013 20:02:00) [facility] TrvzqxdUMMYFRHRXC4696-15-78 01:02:00 1.019[facility] JgkuvucSQOZRXKEMD2114-02-60 01:02:00Clear (03/09/2013 20:02:00) [facility] TnierzjTOHPESOESA1900-40-11 01:02:005.0[facility] HermannURINALYSIS 2013-03-10 01:02:00Negative mg/dL *NA*(03/09/2013 20:02:00) [facility] James IVNHHFFDLQ1251-60-84 01:02:00Negative (03/09/2013 20:02:00) [facility] [place] HYMNDHTLBY2919-89-48 01:02:00Negative mg/dL *NA*(03/09/2013 20:02:00) [facility] XwkwjveTNZEYIHAUY3519-37-66 01:02:00Negative mg/dL (03/09/2013 20:02:00) [facility] WdhxylqYIJPYEGBAE4969-68-56 01:02:00Negative *NA*(03/09/2013 20:02:00) [facility] TdsvdscVOCRUMXEPG0150-24-57 01:02:001[facility] HermannURINALYSIS 2013-03-10 01:02:00Occasional /LPF *NA*(03/09/2013 20:02:00) [facility] LZKBUIKUSR6553-34-80 01:02:00Negative (03/09/2013 20:02:00) [facility] WDTNWOMZET0923-23-24 01:02:00Negative (03/09/2013 20:02:00) [facility]
[2020-05-15 16:43] VITALS: BP 154/84
--- NOTE | 2020-05-15 16:44 | Emergency Department Note ---
History of Present Illnes History of Present Illness Chief Complaint: Abdominal Complaints History of Present Illness This is a 39 year old female Chief Complaint Comment PT STATED SHE HAS BEEN HAVING MID-EPIGASTRIC AB PAIN WITH BURNING AND NAUSEA X1 WEEK, PT STATED PAIN COMES AND GOES. NO DISTRESS NOTED IN TRIAGE. . Historian: Patient Arrival Mode: Car Onset (how long ago): day(s) (2) Location: RUQ Quality: CRAMPNG Radiation: Denies non-radiation, Denies back, Denies neck, Denies extremity, Denies abdomen, Denies periumbilical, Denies flank, Denies proximal, Denies distal, Denies other Severity: moderate Onset quality: gradual Duration (how long): day(s) (2) Timing of current episode: intermittent Progression: waxing and waning Chronicity: new Context: Denies recent illness, Denies recent surgery, Denies recent immobilization, Denies recent travel, Denies trauma/injury, Denies new medications, Denies hx of DVT/PE, Denies non-compliance w/ medications, Denies other Relieving factors: none Exacerbating factors: none Associated symptoms: Reports nausea/vomiting; Denies denies other symptoms, Denies confusion, Denies chest pain, Denies cough, Denies diaphoresis, Denies fever/chills, Denies headaches, Denies loss of appetite, Denies malaise, Denies rash, Denies seizure, Denies shortness of breath, Denies syncope, Denies weakness, Denies other Treatments prior to arrival: none Past Medical/Family History Physician Review I have reviewed the patient's past medical and family history. Any updates have been documented here. Past Medical History Recent Fever: No Clinical Suspicion of Infectio: No New/Unexplained Change in Ment: No Past Medical History: Hypertension Other Medical History: GASTRITIS TACHYCARDIA Past Surgical History: Cholecysctectomy, Appendectomy Social History Smoking Cessation: Never Smoker Counseling Performed: No Alcohol Use: Occasional Any Illegal Drug Use: No Other Any Pre-Existing Lines (PICC,: No Review of Systems Review of Systems Constitutional: Reports no symptoms EENTM: Reports no symptoms Cardiovascular: Reports no symptoms Respiratory: Reports no symptoms Gastrointestinal: Reports as per HPI Genitourinary: Reports no symptoms Musculoskeletal: Reports no symptoms Integumentary: Reports no symptoms Neurological: Reports no symptoms Psychological: Reports no symptoms Endocrine: Reports no symptoms Hematological/Lymphatic: Reports no symptoms Physical Exam Related Data Allergies: Coded Allergies: ceftriaxone (Verified Allergy, Severe, 05/15/20) Triage Vital Signs Vital Signs Date Time Temp Pulse Resp B/P (MAP) Pulse Ox O2 Delivery O2 Flow Rate FiO2 05/15/20 15:16 98.4 103 17 162/84 100 Room Air Vital signs reviewed: Yes Physical Exam CONSTITUTIONAL Constitutional: Present well-developed, Present well-nourished HENT HENT: Present normocephalic, Present atraumatic, Present oropharynx clear/moist, Present nose normal HENT L/R: Present left ext ear normal, Present right ext ear normal EYES Eyes: Reports PERRL, Reports conjunctivae normal NECK Neck: Present ROM normal PULMONARY Pulmonary: Present effort normal, Present breath sounds normal CARDIOVASCULAR Cardiovascular: Present regular rhythm, Present heart sounds normal, Present capillary refill normal, Present normal rate GASTROINTESTINAL Abdominal: Present soft, Present bowel sounds normal, Present tender (RUQ) GENITOURINARY Genitourinary: Present exam deferred SKIN Skin: Present warm, Present dry MUSCULOSKELETAL Musculoskeletal: Present ROM normal NEUROLOGICAL Neurological: Present alert, Present oriented x 3, Present no gross motor or sensory deficits PSYCHOLOGICAL Psychological: Present mood/affect normal, Present judgement normal Results Laboratory Lab results reviewed: Yes Imaging Imaging results reviewed: Yes Procedures 12 Lead ECG Interpretation ECG Interpretation : ECG: ECG 1 Nub Card Tender: Interpreted by ED physician Date: May 15, 2020 Time: 15:21 Rhythm: sinus rhythm Rate: normal BPM: 96 QRS axis: normal ST segments normal: Yes T waves normal: Yes Clinical Impression: normal ECG Assessment & Plan Medical Decision Making MDM PUD RENAL COLIC SOD Reassessment Reassessment time: 16:41 Reassessment BETTER Assessment & Plan Final Impression: (1) Abdominal pain, right upper quadrant (2) Sphincter of Oddi dysfunction (3) Urinary tract infection (4) Ovarian cyst Last Vital Signs Date Time Temp Pulse Resp B/P (MAP) Pulse Ox O2 Delivery O2 Flow Rate FiO2 05/15/20 15:16 98.9 103 17 162/84 100 Room Air Medications in the ED Ketorolac Tromethamine 15 mg ONCE STAT IV Last administered on 05/15/20at 15:54; Admin Dose 15 MG; Start 05/15/20 at 15:32; Stop 05/15/20 at 15:48; Status DC Ondansetron HCl 4 mg NOW STAT IV Last administered on 05/15/20at 15:54; Admin Dose 4 MG; Start 05/15/20 at 15:32; Stop 05/15/20 at 15:48; Status DC Ondansetron HCl 4 mg STK-MED ONCE .ROUTE ; Start 05/15/20 at 15:59; Stop 05/15/20 at 15:55; Status DC Ketorolac Tromethamine 30 mg STK-MED ONCE .ROUTE ; Start 05/15/20 at 15:59; Stop 05/15/20 at 15:55; Status DC INGRIS GARG MD May 15, 2020 16:43
== END 2020-05-15 16:51 | disposition home or self-care (01) ==
LOC: FSED 16:00
DX: R10.11 Right upper quadrant pain (principal); N39.0 Urinary tract infection, site not specified; N83.201 Unspecified ovarian cyst, right side; N20.0 Calculus of kidney
CPT/HCPCS: 74176; 80048; 80076; 81003; 81025; 85025; 99284; J1885; J2405

== ENCOUNTER 2020-06-04 19:42 | Emergency (ER) | payer SELFPAY ==
[~2020-06-04] VITALS: Ht 165.1 cm; Wt 79.8 kg
[2020-06-04] MEDS ORDERED: ACETAMINOPHEN 325 MG TAB PO ONE (20:30)
[2020-06-04] MEDS ORDERED: SODIUM CHLORIDE 0.9% 1000ML 1,000 ML IV SCH (20:30)
[2020-06-04] MEDS ORDERED: ACETAMINOPHEN 325 MG TAB ONE (20:33)
[2020-06-04] MEDS ORDERED: SODIUM CHLORIDE 0.9% 1000ML 1,000 ML ONE (20:33)
[2020-06-04] MEDS ORDERED: NITROFURANTOIN100 MG PO (20:41)
--- OUTSIDE RECORDS SUMMARY | 2020-06-04 21:07 | XMS REPORT | Clinical Summary ---
Author Author CAROL [facility] Address Unknown Phone Unavailable Care Team Providers Care Active Directory Architect Name Role Phone PCP Unavailable Allergies No [...] Not on file Results Not on fileafter 06/04/2019 Insurance Payer Benefit Subscriber ID Type Phone Address Plan / Group [employer] [facility] [employer] xxxxxxxxx HMO/PO S CARE POS SELECT CHOICE Advance Directives For more information, please contact: [address] [place] [address] Date Inactivated Comments Code Status Date Activated Full Code 09/04/2018 2:54 PM This code status was determined by: Patient
--- OUTSIDE RECORDS SUMMARY | 2020-06-04 21:07 | XMS REPORT | Continuity of Care Document ---
Author Author [facility] t Organization [facility] Address [address] [place] [address] Phone Unavailable Care Team Providers Care Livestock Exhibitor Name Role Phone NO, PCP PCP Unavailable INGRIS GARG Attphys Unavailable URBAN DOWNING Attphys Unavailable Kristy MCKINLEY Admphys Unavailable Problems Condition Name Condition Details Condition Category Status Onset Date Resolution Date Last Treatment Date Treating Clinician Comments Source Calculus of gallbladder with biliary obstruction but w ithout cholecystitis Calculus of gallbladder with biliary obstruction but without cholecystitis Disease Active 2018-09-04 00:00:00 [facility] Acute hepatitis Acute hepatitis Disease Active 2018-09-04 00:00:00 [facility] Right upper quadrant abdominal pain Problem Active [facility] Dysfunction of sphincter of Oddi Problem Active [facility] Urinary tract infection Problem Active [facility] Cyst of ovary Problem Active [facility] Allergies, Adverse Reactions, Alerts Allergy Name Allergy Type Status Severity Reaction(s) Onset Date Inacti ve Date Treating Clinician Comments Source Ceftriaxone Allergy to substance Active Severe 2020-05-15 00:00:00 [facility] Family History Family Member Diagnosis Comments Start Date Stop Date Source Natural father Diabetes [facility] Natural father Heart disease [facility] Social History Social Habit Start Date Stop Date Quantity Comments Source History SDOH Alcohol Std Drinks [facility] History SDOH Alcohol Binge [facility] Sex Assigned At [facility] History SDOH Alcohol Frequency 2018-09-04 00:00:00 2018-09-04 00:00:0 0 1 [facility] Alcohol Comment 2018-09-04 00:00:00 2018-09-04 00:00:00 rare beer [facility] Smoking Status Start Date Stop Date Source Never smoker [facility] Medications Ordered Medication Name Filled Medication Name Start Date Stop Da te Current Medication? Ordering Clinician Indication Dosage Frequency Signature (SIG) Comments Components Source carvedilol (COREG) 3.125 MG tablet 2018-09-07 15:12:59 Yes 3.125mg Take 3.125 mg by mouth 2 (two) times daily with breakfast and dinner. [facility] traMADol (ULTRAM) 50 mg tablet 2018-09-07 00:00:00 Yes 50mg Take 1 tablet (50 mg total) by mouth every 6 (six) hours as needed. Max Daily Amount: 200 mg [facility] dexlansoprazole (KAPIDEX,DEXILANT) 30 mg delayed release cap sho 2018-09-04 11:17:27 Yes 30mg QD Take 30 mg by mouth daily. [facility] Vital Signs Vital Name Observation Time Observation Value Comments Source Weight 2020-05-15 15:16:00 169 [lb_av] [facility] BMI (Body Mass Index) 2020-05-15 15:16:00 28.1 kg/m2 [facility] Procedures This patient has no known procedures. Plan of Care Planned Activity Planned Date Details Comments Source Instructions Abdominal Pain - Adult [facility] Encounters Start Date/Time End Date/Time Encounter Type Admission Type Attendi [facility] Facility Care Department Encounter ID Source 2020-06-04 18:41:00 2020-06-04 18:41:00 Emergency E [id number] 2020-05-15 16:00:00 2020-05-15 16:51:00 Departed Emergency Room INGRIS GARG [facility] [id number] DIANNA Dee [facility] 2019-06-22 17:00:00 2019-06-22 17:00:00 Outpatient [facility] MED [id number] Results Test Description Test Time Test Comments Results Result Comments Source CT ABD/PEL WO CONTRAST-HOPD 2020-05-15 16:04:00 [place] [id number] [place] [address] Patient Name: AMOS HERNANDEZ MR #: [id number] : 1980 Age/Sex: 39/F Req #: [id number] Adm Physician: Ordered by: INGRIS GARG MD Report #: [id number] Location: FS Room/Bed: Procedure: [id number] HOPD/CT ABD/PEL WO CONTRAST-HOPD Exam Date: 05/15/20 [...] 4:17 PM Dictated By: ANTONETTE NAVARRETE MD 16 Transcribed By: YUNIOR on 05/15/201616 COPY TO: INGRIS GARG MD TISSUE EXAM 2018-09-08 17:48:00 Surgical Pat hology Report Case: [id number] Authorizing Provider: Rosalina Sarabia MD Collected: 09/06/2018 1024 Ord ering Location: [facility] PERIOPERATIVE Received: 09/06/2018 1102 SERVICES Pathologist: Nirali [...] SEE COMMENT Signing Pathologist Direct Phone Line: [phone] signed by Nirali Shah MD on 09/08/2018 at 5:48 PM Specimen B. The portal inflammation noted in the liver biopsy appears to be secondary to biliary tract disease. The histological features are not supportive of autoimmune hepatitis. Clinical follow up is recommended.INTRADEPARTMENTAL CONSULTATION: - Danica Rae MD has seen specimen B and agrees with the diagnosis.48499, 30306, 47732 x 4, 01117 x 1, 46209 x 3Symptomatic cholelithiasis A. Gallbladder; B. Liver biopsyThe specimen is received in two containers of formalin both labeled with the patient's information. Part A labeled "gallbladder" consists of a previously opened gallbladder measuring 6 x 2 cm, gallbladder wall thickness up to 0.2 cm. There is a green faceted stone in the container measuring 2 cm in greatest dimension. The mucosa is humphrey-red velvety with cholesterolosis throughout. There is an attached and humphrey lymph node measuring 0.8 cm. Section code: A1, margin en face with lymph node bisected; A2, gallbladder wall.Part B labeled "liver biopsy" consisting of humphrey-red core measuring 2.5 cm in length. The core is bisected and submitted entirely B1. CG/pl PerformedThe interpretation of this case included the use of immunohistochemistry or special stains. Immunohistochemistry technical testing was performed at [facility] Pathology Laboratory where it was developed and its performance characteristics were determined. It has not been cleared or approved by the U.S. Food and Drug Administration. The FDA has determined that such clearance or approval is not necessary. The test is used for clinical purposes. It should not be regarded as investigational or for rese arch. This laboratory is certified under the Clinical Laboratory Improvement Amendments of 1988 (CLIA-88) as qualified to perform high complexity clinical laboratory testing.Block A: Immunohistochemical stains are performed to examine increased circular and slit like spaces in the lamina propria and focal Muscularis propria. The stains show this to be prominent and increased vascular spaces.AE1/AE3- negative in lesional area (cleft like spaces in lamina propria and focal muscularis propria)CAM 5.2- negative in lesional area (cleft like spaces in lamina propria and focal muscularis propria)CD34- positive in lesional area, compatible with vascular lumen (cleft like spaces in lamina propria and focal muscularis propria)Calretinin-negative in lesional area (cleft like spaces in lamina propria and focal muscularis propria) internal and external controls are adequateBlock BTrichrome-focally increased in portal tractReticulin- normal trabeculaePAS-D- no abnormal intracellular deposits seenIron-negativeControls adequate. ANTI-MITOCHONDRIAL AB, REFLEX TO TITER 2018-09-08 10:42:00 Test Item SCAN RESULT (test code = 3250985) BASIC METABOLIC [id number] 07:52:00* Test Item Value Reference Range Interpretation [...] INSUFFICIENT CLINICAL DATA TO CALCULATE ESTIMATED GFR. [id number] 07:50:00* Test Item Value Reference Range Interpretation Comments MAGNESIUM (BEAKER) (test code = 627) 2.0 mg/dL 1.6-2.6 HEPATIC FUNCTION [id number] 07:50:00* Test Item Value Reference Range Interpretation [...] = 347) 247 U/L 6-55 H PROTHROMBIN [id number] 07:36:00* Test Item Value Reference Range Interpretation [...] 0 /100 WBC 0 -0 MR, ABDOMEN, [id number] 10:08:00FINAL REPORT MRI of the abdomen, MRCP. [...] evidence of intra or extra hepatic biliary dilatati on with the CBD measuring 5 mm. No choledocholithiasis is seen. A 2 cm gallstone is seen in a contracted gallbladder. The pancreatic duct is normal in caliber. The visualized osseous structures are within normal limits. IMPRESSION:1. Cholel ithiasis.2. No evidence of choledocholithiasis or biliary dilatation.3. Other fi ndings as described above. Signed: Matthew Rosaleseport Verified Date/Time: 09/06/2018 10:08:57 Reading Location: [address] Radiology Reading Room C METABOLIC [id number] 06:44:00* Test Item Value Reference Range Interpretation [...] CLINICAL DATA TO CALCULATE ESTIMATED GFR. PROTHROMBIN [id number] 06:42:00* Test Item Value Reference Range Interpretation Comments PROTIME (BEAKER) (test code = 759) 14.3 seconds 11.7-14.7 INR (BEAKER) (test code = 370) 1.1 <=5.9 RECOMMENDED COUMADIN/WARFARIN INR THERAPY RANGESSTANDARD DOSE: 2.0 - 3.0 Inclu kylie: PROPHYLAXIS for venous thrombosis, systemic embolization; TREATMENT for shannan ous thrombosis and/or pulmonary embolus.HIGH RISK: Target INR is 2.5-3.5 for pat ients with mechanical heart valves.[id number] 06:42:00* Test Item Value Reference Range Interpretation Comments MAGNESIUM (BEAKER) (test code = 627) 2.0 mg/dL 1.6-2.6 HEPATIC FUNCTION [id number] 06:42:00* Test Item Value Reference Range Interpretation [...] WBC 0 -0 URINALYSIS W/ REFLEX URINE [id number] 08:47:00* Test Item Value Reference Range Interpretation [...] /HPF SOURCE(BEAKER) (test code = 2795) SCREEN, [id number] 08:46:00* Test Item Value Reference Range Interpretation Comments TEST URINE (BEAKER) (test code = 583) Negative [id number] 05:45:00* Test Item Value Reference Range Interpretation Comments FERRITIN (BEAKER) (test code = 361) 20 ng/mL 5-275 HEPATITIS B SURFACE [id number] 05:44:00* Test Item Value Reference Range Interpretation Comments HEPATITIS B SURFACE ANTIBODY (BEAKER) (test code = 647) < mIU/mL <8.0 HEPATITIS A ANTIBODY, [id number] 05:44:00* Test Item Value Reference Range Interpretation Comments HEPATITIS A IGG ANTIBODY (BEAKER) (test code = 2797) Reactive N onreactive A TSH/FREE T4 IF [id number] 05:33:00* Test Item Value Reference Range Interpretation Comments THYROID STIMULATING HORMONE (BEAKER) (test code = 772) 1.47 uIU/mL 0.35-4.94 HEPATITIS B CORE ANTIBODY, [id number] 05:31:00* Test Item Value Reference Range Interpretation [...] = 2590) 15 % 20-5 5 L [id number] 05:14:00* Test Item Value Reference Range Interpretation Comments PHOSPHORUS (BEAKER) (test code = 604) 3.5 mg/dL 2.3-4.7 [id number] 05:14:00* Test Item Value Reference Range Interpretation Comments MAGNESIUM (BEAKER) (test code = 627) 2.1 mg/dL 1.6-2.6 HEPATIC FUNCTION [id number] 05:14:00* Test Item Value Reference Range Interpretation [...] = 347) 667 U/L 6-55 H PROTHROMBIN TIME/[id number] 05:12:00* Test Item Value Reference Range Interpretation [...] code = 427) 1086 mg/dL 540- 1,822 VVINN-5-[id number] 05:10:00* Test Item Value Reference Range Interpretation [...] 0 /100 WBC 0 -0 U/S, DUPLEX, [id number] 23:00:00Please do with doppler to assess vasculature [...] Adhikari Verified Date/Time: 09/04/2018 23:00:17 Reading Location: [address] Reading Room AMINOPHEN [id number] 17:26:00* Test Item Value Reference Range Interpretation Comments ACETAMINOPHEN LEVEL (BEAKER) (test code = 344) < ug/mL 10.0-30 .0 L Therapeutic Range: 10.0-30.0 g/mLToxic Levels: >200.0 g/mLHEPATITIS PANEL, [id number] 15:59:00* Test Item Value Reference Range Interpretation Comments HEPATITIS A IGM ANTIBODY (BEAKER) (test code = 498) Nonreactive No nreactive HEPATITIS B CORE IGM ANTIBODY (BEAKER) (test code = 645) Non reactive Nonreactive HEPATITIS C ANTIBODY (BEAKER) (test code = 367) Nonreactive Nonrea ctive HEPATITIS B SURFACE ANTIGEN (2) (BEAKER) (test code = 2585) Nonreactive Nonreactive HIV-1 ANTIGEN WITH HIV-1/2 [id number] 15:59:00* Test Item Value Reference Range Interpretation Comments HIV-1 ANTIGEN WITH HIV 1\\T\\2 ANTIBODY (2) (BEAKER) (te st code = 2586) Nonreactive Nonreactive [id number] 15:25:00* Test Item Value Reference Range Interpretation Comments ETHANOL (BEAKER) (test code = 400) < mg/dL <=10 [id number] 15:16:00* Test Item Value Reference Range Interpretation [...] pat ients with mechanical heart valves.U/S, ABDOMINAL, [id number] 13:20:00 Abdomen limited area? Add comment if [...] eport Verified Date/Time: 09/04/2018 13:20:17 Reading Location: [facility] P006J [facility] Reading Room Electronically signed by: SOCO PATEL M.D. on 09/04 01:20 PM RAD, CHEST, 1 VIEW, NON [id number] 10:54:00Reason for exam:-> chest painIs the patient [...] [place] Verified Date/Time: 09/04/2018 10:54:45 Reading Location: [facility] Radiology Reading Room REHENSIVE METABOLIC [id number] 10:46:00* Test Item Value Reference Range Interpretation [...] INSUFFICIENT CLINICAL DATA TO CALCULATE ESTIMATED GFR. [id number] 10:45:00* Test Item Value Reference Range Interpretation Comments LIPASE (BEAKER) (test code = 749) 31 U/L 8-78 CBC W/PLT COUNT & AUTO [id number] 10:23:00* Test Item Value Reference Range Interpretation [...]
--- NOTE | 2020-06-04 21:22 | Emergency Department Note ---
History of Present Illnes History of Present Illness Chief Complaint: COVID PUI History of Present Illness This is a 39 year old female with fever and diarrhea since yesterday. The patient has had 9 episodes of diarrhea today, she states the amount of stool is small and mostly air. The stool is watery. There is no blood in the stool. He has some mild nausea, but no vomiting. The fever has been subjective. She last took ibuprofen at noon today. Her has similar symptoms and started on June 01. He sought medical care at another emergency room and had Covid test which was negative and was told that his diarrhea was caused by "another virus". She's had no recent antibiotics, no recent camping, no well water, no known bad food. There's been no dysuria, hematuria. She's had no cough, sore throat, runny nose, or problems with taste or smell. 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 Historian: Patient Arrival Mode: Car Radiologic Tech Required: No Onset (how long ago): day(s) Location: generlized abdomen Quality: cramping Radiation: Reports non-radiation Severity: mild (pain) Duration (how long): day(s) Timing of current episode: intermittent Progression: worsening Chronicity: new Context: Reports recent illness; Denies trauma/injury Relieving factors: other (Moltrin) Exacerbating factors: none Associated symptoms: Reports denies other symptoms Past Medical/Family History Physician Review I have reviewed the patient's past medical and family history. Any updates have been documented here. Past Medical History Recent Fever: Yes Clinical Suspicion of Infectio: No New/Unexplained Change in Ment: No Past Medical History: Hypertension Other Medical History: GASTRITIS TACHYCARDIA Past Surgical History: Cholecysctectomy, Appendectomy Social History Smoking Cessation: Never Smoker Counseling Performed: No Alcohol Use: None Any Illegal Drug Use: No Physically hurt or threatened: No Other Any Pre-Existing Lines (PICC,: No Review of Systems Review of Systems Constitutional: Reports chills, Reports fever, Reports malaise EENTM: Reports no symptoms Cardiovascular: Reports no symptoms Gastrointestinal: Reports as per HPI Genitourinary: Reports no symptoms Musculoskeletal: Reports no symptoms Integumentary: Reports no symptoms Neurological: Reports no symptoms Psychological: Reports no symptoms Endocrine: Reports no symptoms Physical Exam Related Data Allergies: Coded Allergies: ceftriaxone (Verified Allergy, Severe, 05/15/20) Triage Vital Signs Vital Signs Date Time Temp Pulse Resp B/P (MAP) Pulse Ox O2 Delivery O2 Flow Rate FiO2 06/04/20 20:06 100.5 102 18 151/72 100 Physical Exam CONSTITUTIONAL Constitutional: Present well-developed, Present well-nourished HENT HENT: Present normocephalic, Present mucosae dry HENT L/R: Present left ext ear normal, Present right ext ear normal EYES Eyes: Reports PERRL, Reports conjunctivae normal NECK Neck: Present ROM normal PULMONARY Pulmonary: Present effort normal, Present breath sounds normal CARDIOVASCULAR Cardiovascular: Present regular rhythm, Present heart sounds normal, Present capillary refill normal, Present normal rate GASTROINTESTINAL Abdominal: Present soft, Present nontender, Present bowel sounds normal; Absent tender, Absent guarding, Absent mass, Absent rebound, Absent left CVA tenderness GENITOURINARY SKIN Skin: Present warm, Present dry MUSCULOSKELETAL Musculoskeletal: Present ROM normal NEUROLOGICAL Neurological: Present alert, Present oriented x 3, Present no gross motor or sensory deficits PSYCHOLOGICAL Psychological: Present mood/affect normal, Present judgement normal Results Laboratory Laboratory comments CMP: glu 129, cl 110 - otherwise normal. WBC 9.0, HCT 30.4, HGB 9.2. HCG NEG, UA: JOHN - TRACE, NIT/GLU/MARGIE/KET NEG, BLOOD TRACE, SG >1.03 Assessment & Plan Medical Decision Making MDM pt with prior appendectomy and cholecystectomy who presents with fever, diarrhea, mild occasional abdominal cramping. was same symptoms. Patient has a nonsurgical abdomen on exam. Differential includes but is not limited to: UTI, Gastroenteritis from viral, bacterial, parasite, or protozoal order. This includes Covid. Do not suspect toxin as no known exposure and no other SLUDGE symptoms. Assessment & Plan Final Impression: (1) Diarrhea (2) Urinary tract infection Depart Disposition: HOME, SELF-CARE Last Vital Signs Date Time Temp Pulse Resp B/P (MAP) Pulse Ox O2 Delivery O2 Flow Rate FiO2 06/04/20 20:06 100.5 102 18 151/72 100 Home Meds Active Scripts Nitrofurantoin Macrocrystal (NITROFURANTOIN) 100 Mg Capsule, 1 TAB-CAP PO BID, #[id number] Prov:LIZETH THURMAN MD 06/04/20 LIZETH THURMAN MD Jun 04, 2020 20:38
== END 2020-06-04 21:29 | disposition home or self-care (01) ==
LOC: FSED 20:40
DX: R19.7 Diarrhea, unspecified (principal); R50.9 Fever, unspecified; R10.9 Unspecified abdominal pain; N39.0 Urinary tract infection, site not specified; I10 Essential (primary) hypertension
CPT/HCPCS: 80053; 81003; 81025; 99284; J7030

== ENCOUNTER 2020-12-25 18:58 | Emergency (ER) | payer SELFPAY ==
[~2020-12-25] VITALS: Ht 162.6 cm; Wt 74.8 kg
[~2020-12-25 18:58] MED LIST: NITROFURANTOIN100 MG PO
[2020-12-25] MEDS ORDERED: CLEOCIN HCL300 MG PO (20:05)
[2020-12-25 20:32] VITALS: BP 127/65
== END 2020-12-25 20:32 | disposition home or self-care (01) ==
LOC: FSED 19:32
DX: L02.411 Cutaneous abscess of right axilla (principal); L03.111 Cellulitis of right axilla; I10 Essential (primary) hypertension
CPT/HCPCS: 99282

== ENCOUNTER 2024-09-02 05:42 | Inpatient (IN) | payer OTHER ==
[2024-09-02] VITALS (7 sets, daily range): BP systolic 121–123; BP diastolic 74–76; PULSE 71–82; RESP 18–19; TEMP 98.3–98.6; O2SAT 97–100
[~2024-09-02] VITALS: Ht 165.1 cm; Wt 78.9 kg
[~2024-09-02 05:42] MED LIST changes: +CLEOCIN HCL300 MG PO; +COMPLEX B-1001 EACH PO; +COREG3.125 MG PO; +FAMOTIDINE20 MG PO; +KETOROLAC TROME10 MG PO; +MACA ROOT5 GM PO; +PEPCID20 MG PO
[2024-09-02] MEDS ORDERED: ACETAMINOPHEN 325 MG TAB ONE (07:02)
[2024-09-02] MEDS: FAMOTIDINE 20 MG/2 ML VIAL IV STA (07:38)
[2024-09-02] MEDS: SODIUM CHLORIDE 0.9% 1000ML 1,000 ML IV ONE (07:38)
[2024-09-02] MEDS: ONDANSETRON HCL INJ 2MG/ML 2ML 2 MG/ML VIAL IV STA (07:38)
[2024-09-02] MEDS: ACETAMINOPHEN 325 MG TAB PO STA (07:39)
[2024-09-02] MEDS: KETOROLAC TROMETHAMINE 30 MG/ML VIAL IV ONE (07:40)
[2024-09-02 07:49] LABS: BASOPHILS % 0.2 % (0.0-1.0); EOSINOPHILS # (AUTO) 0.5 (0.0-0.4); EOSINOPHILS % 4.3 % (0.0-6.0); HEMATOCRIT 41.9 % (34.2-44.1); HEMOGLOBIN 13.9 g/dL (12.0-16.0); LYMPHOCYTES # (AUTO) 2.6 (1.0-3.2); LYMPHOCYTES % 24.4 % (18.0-39.1); MEAN CORPUSCULAR HGB CONC 33.2 g/dL (31-35); MEAN CORPUSCULAR VOLUME 90.3 fL (81-99); MONOCYTES # (AUTO) 0.5 (0.2-0.8); MONOCYTES % 4.4 % (4.4-11.3); NEUTROPHILS % 66.4 % (38.7-80.0); PLATELET COUNT 342 x10e3/uL (140-360); RED BLOOD COUNT 4.64 x10e6/uL (3.6-5.1); RED CELL DISTRIBUTION WIDTH 12.5 % (11.7-14.4); WHITE BLOOD COUNT 10.51 x10e3/uL (4.8-10.8)
[2024-09-02 08:06] LABS: INR 0.84
[2024-09-02 08:07] LABS: PARTIAL THROMBOPLASTIN TIME 27.8 seconds (23.8-35.5)
[2024-09-02 08:10] LABS: CLARITY,URINE CLOUDY (CLEAR); COLOR,URINE YELLOW (YELLOW); GLUCOSE, URINE NEGATIVE (NEGATIVE); KETONES,URINE NEGATIVE (NEGATIVE); LEUKOCYTE ESTERASE ,URINE NEGATIVE (NEGATIVE); NITRITE,URINE NEGATIVE (NEGATIVE); PH,URINE 5.5 (5 - 7); PROTEIN,URINE DIPSTICK >=300 (NEGATIVE)
[2024-09-02 08:11] LABS: BILIRUBIN,URINE SMALL (NEGATIVE); URINE UROBILINOGEN 0.2 mg/dL (0.2 - 1)
[2024-09-02 08:15] LABS: ALBUMIN/GLOBULIN RATIO 1.1 (0.8-2.0); ANION GAP 15.3 mmol/L (8-16); BILIRUBIN,TOTAL 0.3 mg/dL (0.2-1.2); CALCIUM 10.8 mg/dL (8.4-10.2); CREATININE, SERUM 0.76 mg/dL (0.57-1.11); POTASSIUM 4.3 mmol/L (3.5-5.1); TOTAL PROTEIN 7.7 g/dL (6.5-8.1)
[2024-09-02] MEDS ORDERED: IOPAMIDOL 370 MG/ML 100 ML INFUS..BTL INJ ONE (08:23)
[2024-09-02 08:51] LABS: BACTERIA,URINE MODERATE /HPF; EPITHELIAL CELLS,URINE RARE /LPF; RBC,URINE >50 /HPF (0-5); WBC,URINE (MAN) 0-5 /HPF (0-5)
[2024-09-02] MEDS ORDERED: DIPHENHYDRAMINE HCL INJ 50 MG/ML VIAL IV PRN (09:30)
[2024-09-02] MEDS ORDERED: ONDANSETRON HCL INJ 2MG/ML 2ML 2 MG/ML VIAL IV PRN ×2 (09:30)
[2024-09-02] MEDS ORDERED: SODIUM CHLORIDE FLUSH 10 ML SYR INJ PRN (09:30)
[2024-09-02] MEDS ORDERED: Morphine 4mg INJECTION 4 MG/ML INJ IV PRN (09:30)
[2024-09-02] MEDS: LACTATED RINGER'S 1,000 ML IV SCH (11:05)
[2024-09-02] MEDS ORDERED: [UNRECOGNIZED DRUG - OTHER] PO (11:21)
[2024-09-02] MEDS ORDERED: HYDRALAZINE HCL 20 MG/ML VIAL IV PRN (13:45)
[2024-09-02] MEDS ORDERED: POLYETHYLENE GLYCOL 3350 17 GM PACK PO PRN (13:45)
[2024-09-02] MEDS: CARVEDILOL 3.125 MG TAB PO SCH (16:16)
[2024-09-02] MEDS: FAMOTIDINE 20 MG/2 ML VIAL IV SCH (16:16)
[2024-09-02] MEDS: DOCUSATE SODIUM 100 MG CAP PO SCH (16:17)
[2024-09-02] MEDS: ACETAMINOPHEN 325 MG TAB PO PRN (17:14)
[2024-09-02] MEDS: KETOROLAC TROMETHAMINE 30 MG/ML VIAL IV PRN (22:12)
[2024-09-02] MEDS: ZOLPIDEM TARTRATE 5 MG TAB PO PRN (22:12)
[2024-09-03] VITALS (9 sets, daily range): BP systolic 126–147; BP diastolic 67–89; PULSE 63–81; RESP 18–19; TEMP 98.3–99.3; O2SAT 98–100
[2024-09-03 05:00] LABS: BASOPHILS % 0.1 % (0.0-1.0); EOSINOPHILS # (AUTO) 0.2 (0.0-0.4); EOSINOPHILS % 2.6 % (0.0-6.0); HEMATOCRIT 36.6 % (34.2-44.1); HEMOGLOBIN 11.9 g/dL (12.0-16.0); LYMPHOCYTES % 22.1 % (18.0-39.1); MEAN CORPUSCULAR HEMOGLOBIN 29.4 pg (28-32); MEAN CORPUSCULAR HGB CONC 32.5 g/dL (31-35); MEAN CORPUSCULAR VOLUME 90.4 fL (81-99); MONOCYTES # (AUTO) 0.6 (0.2-0.8); MONOCYTES % 6.9 % (4.4-11.3); NEUTROPHILS # (AUTO) 6.3 (2.1-6.9); PLATELET COUNT 276 x10e3/uL (140-360); RED BLOOD COUNT 4.05 x10e6/uL (3.6-5.1); RED CELL DISTRIBUTION WIDTH 12.4 % (11.7-14.4); WHITE BLOOD COUNT 9.23 x10e3/uL (4.8-10.8)
[2024-09-03 05:29] LABS: CALCIUM 9.6 mg/dL (8.4-10.2); CREATININE, SERUM 0.95 mg/dL (0.57-1.11)
[2024-09-03 05:31] LABS: CHOL/HDL RATIO 2.9 (3.0-3.6); MAGNESIUM 1.8 MG/DL (1.3-2.1); PHOSPHORUS 3.8 MG/DL (2.3-4.7)
[2024-09-03 05:52] LABS: FREE T4 (FREE THYROXINE) 0.85 ng/dL (0.8-1.8); THYROID STIMULATING HORMONE 1.04 uIU/mL (0.350-4.940)
[2024-09-03] MEDS ORDERED: EZETIMIBE 10 MG TAB PO SCH (09:00)
[2024-09-03] MEDS: CRESTOR 10MG PO SCH (09:26)
[2024-09-03] MEDS: FAMOTIDINE 20 MG TAB PO SCH (09:27)
[2024-09-04 03:15] VITALS: BP 127/85; PULSE 62; RESP 18; TEMP 98.4; O2SAT 97
[2024-09-04 05:55] LABS: BASOPHILS % 0.2 % (0.0-1.0); EOSINOPHILS # (AUTO) 0.4 (0.0-0.4); EOSINOPHILS % 3.9 % (0.0-6.0); HEMATOCRIT 36.4 % (34.2-44.1); HEMOGLOBIN 11.9 g/dL (12.0-16.0); LYMPHOCYTES # (AUTO) 2.4 (1.0-3.2); LYMPHOCYTES % 25.4 % (18.0-39.1); MEAN CORPUSCULAR HEMOGLOBIN 29.4 pg (28-32); MEAN CORPUSCULAR HGB CONC 32.7 g/dL (31-35); MEAN CORPUSCULAR VOLUME 89.9 fL (81-99); MONOCYTES # (AUTO) 0.7 (0.2-0.8); NEUTROPHILS # (AUTO) 5.8 (2.1-6.9); NEUTROPHILS % 62.3 % (38.7-80.0); PLATELET COUNT 266 x10e3/uL (140-360); RED BLOOD COUNT 4.05 x10e6/uL (3.6-5.1); RED CELL DISTRIBUTION WIDTH 12.3 % (11.7-14.4); WHITE BLOOD COUNT 9.28 x10e3/uL (4.8-10.8)
[2024-09-04 06:19] LABS: ANION GAP 12.2 mmol/L (8-16); CALCIUM 10.2 mg/dL (8.4-10.2); CREATININE, SERUM 0.87 mg/dL (0.57-1.11); POTASSIUM 4.2 mmol/L (3.5-5.1)
[2024-09-04 08:00] VITALS: BP 127/85; PULSE 62; RESP 18; TEMP 98.4; O2SAT 97
[2024-09-04 08:52] VITALS: BP 131/71; PULSE 70; RESP 19; TEMP 98.2; O2SAT 99
[2024-09-04 12:11] VITALS: BP 133/87; PULSE 72; RESP 19; TEMP 97.9; O2SAT 100
[2024-09-04] MEDS ORDERED: ONDANSETRON HCL 4 MG ORAL DISINTEGRATING TAB PO PRN (14:15)
[2024-09-04 16:31] VITALS: BP 144/94; PULSE 74; RESP 19; TEMP 97.7; O2SAT 100
[2024-09-04 20:00] VITALS: BP 136/91; PULSE 76; RESP 17; TEMP 98.4; O2SAT 100
[2024-09-05] VITALS: BP 137/91; PULSE 77; RESP 18; TEMP 98.6; O2SAT 100
[2024-09-05 04:00] VITALS: BP 127/88; PULSE 76; RESP 18; TEMP 98.5; O2SAT 100
[2024-09-05] MEDS ORDERED: FENTANYL CITRATE/PF 100MCG/2 ML INJ ONE (06:44)
[2024-09-05] MEDS ORDERED: PROPOFOL IV EMULSION 10 MG/ML 20 ML VIAL ONE (06:44)
[2024-09-05] MEDS ORDERED: LIDOCAINE HCL 2% LOCAL INJ 5 ML SDV VIAL INJ ONE (06:44)
[2024-09-05] MEDS ORDERED: MIDAZOLAM HCL 2 MG/2 ML VIAL ONE (06:44)
[2024-09-05] MEDS ORDERED: ONDANSETRON HCL INJ 2MG/ML 2ML 2 MG/ML VIAL ONE (06:48)
[2024-09-05] MEDS ORDERED: GENTAMICIN SULFATE 40 MG/ML 2 ML VIAL ONE (07:04)
[2024-09-05] MEDS ORDERED: SODIUM CHLORIDE 0.9% 100 ML ONE (07:07)
[2024-09-05 08:13] VITALS: BP 123/77; PULSE 66; RESP 17; TEMP 98.5; O2SAT 95
[2024-09-05] MEDS ORDERED: DEXAMETHASONE SOD PHOS INJ 4 MG/ML SDV ONE (08:56)
[2024-09-05] MEDS ORDERED: ACETAMINOPHEN-1 EAC4 PO (10:13)
[2024-09-05] MEDS ORDERED: ACETAMINOPHEN325 M1 PO (10:13)
[2024-09-05] MEDS ORDERED: ONDANSETRON ODT4 MG PO (10:13)
[2024-09-05] MEDS ORDERED: BACTRIM DS TAB1 EACH PO (10:13)
[2024-09-05 10:14] VITALS: BP 123/77; PULSE 66
[2024-09-06] MEDS ORDERED: PANTOPRAZOLE SO40 MG PO (14:12)
== END 2024-09-05 11:48 | disposition home or self-care (01) | DRG 661 ==
LOC: FSED 05:48 → ERHOLD 09:35 → MED/SURG2 10:46
PROVIDERS: ADMIT Internal Medicine; ATTEND Internal Medicine
PROC: BT161ZZ Fluoroscopy of Right Ureter using Low Osmolar Contrast (ICD-10-PCS; 2024-09-05)
PROC: BT171ZZ Fluoroscopy of Left Ureter using Low Osmolar Contrast (ICD-10-PCS; 2024-09-05)
PROC: 0T778DZ Dilation of Left Ureter with Intraluminal Device, Via Natural or Artificial Opening Endoscopic (ICD-10-PCS; principal; 2024-09-05 06:56)
DX: N13.2 Hydronephrosis with renal and ureteral calculous obstruction (principal); E78.5 Hyperlipidemia, unspecified; R31.9 Hematuria, unspecified; N23 Unspecified renal colic; E86.0 Dehydration; I10 Essential (primary) hypertension; F41.9 Anxiety disorder, unspecified; R00.2 Palpitations; R11.2 Nausea with vomiting, unspecified; K21.9 Gastro-esophageal reflux disease without esophagitis; Z59.6 Low income; E66.9 Obesity, unspecified; Z68.29 Body mass index [BMI] 29.0-29.9, adult; Z90.49 Acquired absence of other specified parts of digestive tract; Z90.710 Acquired absence of both cervix and uterus; Z85.43 Personal history of malignant neoplasm of ovary; Z90.722 Acquired absence of ovaries, bilateral; Z88.1 Allergy status to other antibiotic agents
CPT/HCPCS: 36415; 74018; 74177; 74420; 80048; 80053; 80061; 81001; 83036; 83605; 83735; 84100; 84439; 84443; 85025; 85610; 85730; 87040; 99284; C1758; C2617; J1100; J1580; J1885; J2003; J2250; J2405; J7030; J7050; Q9967

== ENCOUNTER → 2024-09-07 | Day surgery (SDC) | payer OTHER ==
[~2024-09-07] MED LIST changes: +ACETAMINOPHEN-1 EAC4 PO; +ACETAMINOPHEN325 M1 PO; +BACTRIM DS TAB1 EACH PO; +DEXAMETHASONE SOD PHOS INJ 4 MG/ML SDV ONE; +EPHEDRINE SULFATE INJ 50 MG/ML VIAL ONE; +FENTANYL CITRATE/PF 100MCG/2 ML INJ ONE; +GENTAMICIN 80MG/NS 100 ML 100 ML IV ONE; +LACTATED RINGER'S 1,000 ML ONE; +LIDOCAINE HCL 2% LOCAL INJ 5 ML SDV VIAL INJ ONE; +ONDANSETRON HCL INJ 2MG/ML 2ML 2 MG/ML VIAL ONE; +ONDANSETRON ODT4 MG PO; +PANTOPRAZOLE SO40 MG PO; +PROPOFOL IV EMULSION 10 MG/ML 20 ML VIAL ONE; +SEVOFLURANE INHAL SOLN 250 ML PEN BTL ONE; +[UNRECOGNIZED DRUG - OTHER] PO
[2024-09-07 09:46] VITALS: TEMP 98
[2024-09-07 10:21] VITALS: BP 137/79; PULSE 82; RESP 18; O2SAT 96
== END | disposition home or self-care (01) ==
LOC: OR 07:05
PROVIDERS: ATTEND Urology
DX: N20.1 Calculus of ureter (principal); Z91.198 Patient's noncompliance with other medical treatment and regimen for other reason; Z96.0 Presence of urogenital implants; I10 Essential (primary) hypertension; E78.5 Hyperlipidemia, unspecified; K21.9 Gastro-esophageal reflux disease without esophagitis; F41.9 Anxiety disorder, unspecified; Z88.1 Allergy status to other antibiotic agents; Z79.899 Other long term (current) drug therapy; Z85.43 Personal history of malignant neoplasm of ovary
CPT/HCPCS: 50590; 93005; J1100; J1580; J2003; J2405; J2704; J3010; J7121

== ENCOUNTER → 2024-09-14 | Day surgery (SDC) | payer OTHER ==
[~2024-09-14] MED LIST changes: -DEXAMETHASONE SOD PHOS INJ 4 MG/ML SDV ONE; -EPHEDRINE SULFATE INJ 50 MG/ML VIAL ONE; -GENTAMICIN 80MG/NS 100 ML 100 ML IV ONE; +KETOROLAC TROMETHAMINE 30 MG/ML VIAL ONE; +LEVOFLOXACIN 500MG/D5W 100ML 100 ML IV ONE; +METOCLOPRAMIDE HCL 10 MG/2ML VIAL ONE; +MIDAZOLAM HCL 2 MG/2 ML VIAL ONE; -ONDANSETRON HCL INJ 2MG/ML 2ML 2 MG/ML VIAL ONE; -SEVOFLURANE INHAL SOLN 250 ML PEN BTL ONE
[2024-09-14 08:11] VITALS: TEMP 97.1
[2024-09-14 08:55] VITALS: BP 108/66; PULSE 83; RESP 16; O2SAT 96
== END | disposition home or self-care (01) ==
LOC: OR 09-12 13:23
PROVIDERS: ATTEND Urology
DX: N20.2 Calculus of kidney with calculus of ureter (principal); N13.30 Unspecified hydronephrosis; Z46.6 Encounter for fitting and adjustment of urinary device; I10 Essential (primary) hypertension; I49.9 Cardiac arrhythmia, unspecified; E66.01 Morbid (severe) obesity due to excess calories; D64.9 Anemia, unspecified; D68.9 Coagulation defect, unspecified; Z88.1 Allergy status to other antibiotic agents; Z01.818 Encounter for other preprocedural examination; Z79.899 Other long term (current) drug therapy; Z86.711 Personal history of pulmonary embolism
CPT/HCPCS: 52356; 74018; 74420; 88300; C1758 ×2; C1769; C2617; J1885; J1956; J2003; J2250; J2704; J2765; J3010; J7121

== ENCOUNTER 2025-05-26 10:14 | Emergency (ER) | payer OTHER ==
[~2025-05-26] VITALS: Ht 165.1 cm; Wt 85.4 kg
[~2025-05-26 10:14] MED LIST changes: -FENTANYL CITRATE/PF 100MCG/2 ML INJ ONE; -KETOROLAC TROMETHAMINE 30 MG/ML VIAL ONE; -LACTATED RINGER'S 1,000 ML ONE; -LEVOFLOXACIN 500MG/D5W 100ML 100 ML IV ONE; -LIDOCAINE HCL 2% LOCAL INJ 5 ML SDV VIAL INJ ONE; -METOCLOPRAMIDE HCL 10 MG/2ML VIAL ONE; -MIDAZOLAM HCL 2 MG/2 ML VIAL ONE; -PROPOFOL IV EMULSION 10 MG/ML 20 ML VIAL ONE
[2025-05-26 10:25] VITALS: PULSE 100; RESP 16; TEMP 98.1
[2025-05-26] MEDS ORDERED: METRONIDAZOLE 500MG/NS 100ML 100 ML IV ONE (12:05)
[2025-05-26] MEDS: METRONIDAZOLE 500MG/NS 100ML 100 ML IV ONE (12:06)
[2025-05-26] MEDS ORDERED: BACTRIM DS TAB1 EACH PO (12:51)
[2025-05-26] MEDS ORDERED: METRONIDAZOLE500 MG PO (12:52)
[2025-05-26 13:10] LABS: EST GLOMERULAR FILTRATION RATE 114.0 ML/MIN (>=60)
[2025-05-26] MEDS: TRAMADOL HCL 50 MG TAB PO ONE (13:13)
[2025-05-26 13:14] VITALS: BP 139/81; PULSE 94; RESP 18; TEMP 97.7; O2SAT 99
== END 2025-05-26 13:14 | disposition home or self-care (01) ==
LOC: FSED 10:18
DX: R10.32 Left lower quadrant pain (principal); K57.32 Diverticulitis of large intestine without perforation or abscess without bleeding; N20.0 Calculus of kidney; R31.9 Hematuria, unspecified; K76.0 Fatty (change of) liver, not elsewhere classified; M54.50 Low back pain, unspecified; I10 Essential (primary) hypertension; E78.5 Hyperlipidemia, unspecified; K21.9 Gastro-esophageal reflux disease without esophagitis; Z85.43 Personal history of malignant neoplasm of ovary
CPT/HCPCS: 36415; 74176; 80053; 99283

== ENCOUNTER → 2025-07-26 | Day surgery (SDC) | payer OTHER ==
[2025-07-23 11:05] LABS: BASOPHILS % 0.3 % (0.0-1.0); EOSINOPHILS % 5.2 % (0.0-6.0); LYMPHOCYTES % 37.5 % (18.0-39.1); MONOCYTES % 5.9 % (4.4-11.3); NEUTROPHILS % 50.8 % (38.7-80.0); RED CELL DISTRIBUTION WIDTH 13.4 % (11.7-14.4)
[~2025-07-26] MED LIST changes: +ACETAMINOPHEN 1000 MG/100 ML 100 ML IV ONE; +B COMPLEX1 EACH PO; +D3-5000125 MCG; +DEXAMETHASONE SOD PHOS INJ 4 MG/ML SDV ONE; +EPHEDRINE SULFATE INJ 50 MG/ML VIAL ONE; +FENTANYL CITRATE/PF 100MCG/2 ML INJ ONE; +FERROUS SULFAT324 MG PO; +LIDOCAINE HCL 2% LOCAL INJ 5 ML SDV VIAL INJ ONE; +LIVER DETOX; +METRONIDAZOLE500 MG PO; +OMEGA 3 1,0001 EACH PO; +ONDANSETRON HCL INJ 2MG/ML 2ML 2 MG/ML VIAL ONE; +PROBIOTIC & AC1 EACH PO; +PROPOFOL IV EMULSION 10 MG/ML 20 ML VIAL ONE; +ROSUVASTATIN CA10 MG PO; +SEVOFLURANE INHAL SOLN 250 ML PEN BTL ONE
[2025-07-26] MEDS: GENTAMICIN 80MG/NS 100 ML 100 ML IV ONE (06:09)
[2025-07-26] MEDS: LACTATED RINGER'S 1,000 ML ONE (06:09)
[2025-07-26 07:38] VITALS: TEMP 98.8
[2025-07-26 08:45] VITALS: BP 110/71; PULSE 81; RESP 18; O2SAT 97
== END | disposition home or self-care (01) ==
LOC: OR 05:18
PROVIDERS: ATTEND Urology
DX: N20.0 Calculus of kidney (principal); I10 Essential (primary) hypertension; I49.9 Cardiac arrhythmia, unspecified; E78.5 Hyperlipidemia, unspecified; K21.9 Gastro-esophageal reflux disease without esophagitis; F17.200 Nicotine dependence, unspecified, uncomplicated; E66.811 Obesity, class 1; Z86.16 Personal history of COVID-19; Z88.1 Allergy status to other antibiotic agents; Z79.899 Other long term (current) drug therapy; Z68.32 Body mass index [BMI] 32.0-32.9, adult; Z01.810 Encounter for preprocedural cardiovascular examination; Z01.812 Encounter for preprocedural laboratory examination
CPT/HCPCS: 36415; 50590; 74018; 85025; 93005; J0131; J1100; J1580; J2003; J2405; J2704; J3010; J7121